=== PATIENT | female | born 1980 | race Caucasian/White ===

== ENCOUNTER → 2017-11-15 | Outpatient (CLI) | payer OTHER ==
--- NOTE | 2017-11-15 09:49 | US ---
EXAMINATION TYPE: US abdomen complete DATE OF EXAM: 11/15/2017 COMPARISON: NONE CLINICAL HISTORY: Epigastric pain R10.13. Nausea, epigastric pain EXAM MEASUREMENTS: Liver Length: 17.1 cm Gallbladder Wall: 0.2 cm CBD: 0.4 cm Spleen: 12.7 cm Right Kidney: 12.9 x 5.3 x 5.7 cm Left Kidney: 13.8 x 5.3 x 4.2 cm Technical limitations due to large amount of overlying bowel content Pancreas: limited evaluation due to overlying bowel content Liver: Enlarged Gallbladder: no evidence of stones Evidence for sonographic Vincent's sign: no CBD: appears wnl Spleen: appears wnl Right Kidney: Normal Left Kidney: enlarged Upper IVC: wnl Abd Aorta: visualized portions appear wnl, bifurcation obscured IMPRESSION: 1. Mild hepatomegaly. 2. There is some limitation due to bowel gas.
== END | disposition home or self-care (01) ==
LOC: RADUSWWP 07:43
PROVIDERS: ATTEND Family Medicine
DX: R16.0 Hepatomegaly, not elsewhere classified (principal); R10.13 Epigastric pain
CPT/HCPCS: 76700

== ENCOUNTER 2018-11-22 16:08 | Emergency (ER) | payer OTHER ==
[2018-11-22 16:40] VITALS: RESP 18
[2018-11-22] MEDS ORDERED: KETOROLAC 30 MG/ML 1 ML VIAL IVP STA (16:48)
[2018-11-22] MEDS ORDERED: SODIUM CHLORIDE 0.9% 1,000 ML IV STA (16:48)
--- NOTE | 2018-11-22 17:16 | ED ---
Abdominal Pain HPI - General Chief Complaint: Abdominal Pain Stated Complaint: poss kidney stones Time Seen by Provider: 11/22/18 16:48 Source: patient, RN notes reviewed Mode of arrival: ambulatory Limitations: no limitations - History of Present Illness Initial Comments: 38-year-old female presents emergency Department chief complaint of left flank pain. Patient states that this started earlier today. Patient does have a history kidney stone states the pain feels very similar. Patient reports no fever or chills. Patient has slight nausea which has resolved. Denies any diarrhea constipation. Denies any chance . Patient states that she is currently under her mental cycle. Patient states that nothing makes the pain feel better or worse at this time. - Related Data Previous Rx's Medication Instructions Recorded Cephalexin [Keflex] 500 mg PO Q8HR #21 cap 04/07/15 Hydrocodone/Acetaminophen [Prole 2 each PO Q6HR PRN #20 tab 04/07/15 5-325] Metoclopramide HCl [Reglan] 10 mg PO Q6HR PRN #15 tablet 04/07/15 Ibuprofen [Motrin] 600 mg PO Q8HR PRN #30 tab 11/22/18 Ondansetron Odt [Zofran Odt] 4 mg PO Q8HR PRN #10 tab 11/22/18 Allergies Allergy/AdvReac Type Severity Reaction Status Date / Time No Known Allergies Allergy Verified 11/22/18 16:40 Review of Systems ROS Statement: Those systems with pertinent positive or pertinent negative responses have been documented in the HPI. ROS Other: All systems not noted in ROS Statement are negative. Past Medical History Additional Past Medical History / Comment(s): kidney stones History of Any Multi-Drug Resistant Organisms: None Reported Past Surgical History: Section, Hernia Repair, Orthopedic Surgery Past Psychological History: No Psychological Hx Reported Smoking Status: Current every day smoker Past Alcohol Use History: Rare Past Drug Use History: None Reported General Exam Limitations: no limitations General appearance: alert, in no apparent distress Head exam: Present: atraumatic, normocephalic, normal inspection Neck exam: Present: normal inspection. Absent: tenderness, meningismus, lymphadenopathy Respiratory exam: Present: normal lung sounds bilaterally. Absent: respiratory distress, wheezes, rales, rhonchi, stridor Cardiovascular Exam: Present: regular rate, normal rhythm, normal heart sounds. Absent: systolic murmur, diastolic murmur, rubs, gallop, clicks GI/Abdominal exam: Present: soft, tenderness (Mild left-sided), normal bowel sounds. Absent: distended, guarding, rebound, rigid Back exam: Present: CVA tenderness (L). Absent: CVA tenderness (R) Neurological exam: Present: alert, oriented X3, CN II-XII intact Course Vital Signs 11/22/18 11/22/18 16:37 18:36 Temperature 99.2 F 98.9 F Pulse Rate 107 H 93 Respiratory 18 18 Rate Blood Pressure 129/83 128/81 O2 Sat by Pulse 97 98 Oximetry Medical Decision Making - Medical Decision Making 38-year-old female presented for flank pain. Patient has a history kidney stones symptoms and urinalysis indicative having a kidney stone patient is comfortable and will be discharged. - Lab Data Result diagrams: 11/22/18 17:17 11/22/18 17:17 Lab Results 11/22/18 11/22/18 11/22/18 Range/Units 17:17 17:17 17:20 WBC 10.0 (3.8-10.6) k/uL RBC 4.60 (3.80-5.40) m/uL Hgb 11.8 (11.4-16.0) gm/dL Hct 35.5 (34.0-46.0) % MCV 77.2 L (80.0-100.0) fL MCH 25.6 (25.0-35.0) pg MCHC 33.2 (31.0-37.0) g/dL RDW 14.9 (11.5-15.5) % Plt Count 281 (150-450) k/uL Neutrophils % 75 % Lymphocytes % 16 % Monocytes % 6 % Eosinophils % 2 % Basophils % 0 % Neutrophils # 7.5 (1.3-7.7) k/uL Lymphocytes # 1.6 (1.0-4.8) k/uL Monocytes # 0.6 (0-1.0) k/uL Eosinophils # 0.2 (0-0.7) k/uL Basophils # 0.0 (0-0.2) k/uL Sodium 142 (137-145) mmol/L Potassium 3.9 (3.5-5.1) mmol/L Chloride 112 H (98-107) mmol/L Carbon Dioxide 22 (22-30) mmol/L Anion Gap 8 mmol/L BUN 16 (7-17) mg/dL Creatinine 0.68 (0.52-1.04) mg/dL Est GFR (CKD-EPI)AfAm >90 (>60 ml/min/1.73 sqM) Est GFR (CKD-EPI)NonAf >90 (>60 ml/min/1.73 sqM) Glucose 95 (74-99) mg/dL Calcium 8.9 (8.4-10.2) mg/dL Total Bilirubin 0.2 (0.2-1.3) mg/dL AST 19 (14-36) U/L ALT 31 (9-52) U/L Alkaline Phosphatase 86 (38-126) U/L Total Protein 6.4 (6.3-8.2) g/dL Albumin 3.8 (3.5-5.0) g/dL Amylase 47 (30-110) U/L Lipase 110 (23-300) U/L Urine Color Yellow Urine Appearance Cloudy H (Clear) Urine pH 6.0 (5.0-8.0) Ur Specific [place] 1.031 (1.001-1.035) Urine Protein 1+ H (Negative) Urine Glucose (UA) Negative (Negative) Urine Ketones Trace H (Negative) Urine Blood Moderate H (Negative) Urine Nitrite Negative (Negative) Urine Bilirubin Negative (Negative) Urine Urobilinogen 2.0 (<2.0) mg/dL Ur Leukocyte Esterase Trace H (Negative) Urine RBC 83 H (0-5) /hpf Urine WBC 9 H (0-5) /hpf Ur Squamous Epith Cells 15 H (0-4) /hpf Urine Bacteria Occasional H (None) /hpf Urine Mucus Rare H (None) /hpf Urine HCG, Qual (Not Detectd) 11/22/18 Range/Units 17:20 WBC (3.8-10.6) k/uL RBC (3.80-5.40) m/uL Hgb (11.4-16.0) gm/dL Hct (34.0-46.0) % MCV (80.0-100.0) fL MCH (25.0-35.0) pg MCHC (31.0-37.0) g/dL RDW (11.5-15.5) % Plt Count (150-450) k/uL Neutrophils % % Lymphocytes % % Monocytes % % Eosinophils % % Basophils % % Neutrophils # (1.3-7.7) k/uL Lymphocytes # (1.0-4.8) k/uL Monocytes # (0-1.0) k/uL Eosinophils # (0-0.7) k/uL Basophils # (0-0.2) k/uL Sodium (137-145) mmol/L Potassium (3.5-5.1) mmol/L Chloride (98-107) mmol/L Carbon Dioxide (22-30) mmol/L Anion Gap mmol/L BUN (7-17) mg/dL Creatinine (0.52-1.04) mg/dL Est GFR (CKD-EPI)AfAm (>60 ml/min/1.73 sqM) Est GFR (CKD-EPI)NonAf (>60 ml/min/1.73 sqM) Glucose (74-99) mg/dL Calcium (8.4-10.2) mg/dL Total Bilirubin (0.2-1.3) mg/dL AST (14-36) U/L ALT (9-52) U/L Alkaline Phosphatase (38-126) U/L Total Protein (6.3-8.2) g/dL Albumin (3.5-5.0) g/dL Amylase (30-110) U/L Lipase (23-300) U/L Urine Color Urine Appearance (Clear) Urine pH (5.0-8.0) Ur Specific [place] (1.001-1.035) Urine Protein (Negative) Urine Glucose (UA) (Negative) Urine Ketones (Negative) Urine Blood (Negative) Urine Nitrite (Negative) Urine Bilirubin (Negative) Urine Urobilinogen (<2.0) mg/dL Ur Leukocyte Esterase (Negative) Urine RBC (0-5) /hpf Urine WBC (0-5) /hpf Ur Squamous Epith Cells (0-4) /hpf Urine Bacteria (None) /hpf Urine Mucus (None) /hpf Urine HCG, Qual Not Detected (Not Detectd) Disposition Clinical Impression: Kidney stone Disposition: HOME SELF-CARE Condition: Stable Instructions (If sedation given, give patient instructions): Kidney Stones (ED) Additional Instructions: Please return to the Emergency Department if symptoms worsen or any other concerns. Prescriptions: Ibuprofen [Motrin] 600 mg PO Q8HR PRN #30 tab PRN Reason: Pain Ondansetron Odt [Zofran Odt] 4 mg PO Q8HR PRN #10 tab PRN Reason: Nausea Is patient prescribed a controlled substance at d/c from ED?: No Referrals: Henrique Hardy MD [Primary Care Provider] - 1-2 days
[2018-11-22 17:28] LABS: Basophils % (A) 0 %; Eosinophils # (A) 0.2 k/uL (0-0.7); Eosinophils % (A) 2 %; HCT 35.5 % (34.0-46.0); HGB 11.8 gm/dL (11.4-16.0); Lymphocytes # (A) 1.6 k/uL (1.0-4.8); Lymphocytes % (A) 16 %; MCH 25.6 pg (25.0-35.0); MCHC 33.2 g/dL (31.0-37.0); MCV 77.2 fL (80.0-100.0); Monocytes # (A) 0.6 k/uL (0-1.0); Monocytes % (A) 6 %; Neutrophils # (A) 7.5 k/uL (1.3-7.7); Neutrophils % (A) 75 %; Platelet Count 281 k/uL (150-450); RDW 14.9 % (11.5-15.5)
[2018-11-22 17:38] LABS: ALT 31 U/L (9-52); AST 19 U/L (14-36); Albumin 3.8 g/dL (3.5-5.0); Alkaline Phosphatase 86 U/L (38-126); Amylase 47 U/L (30-110); Anion Gap 8 mmol/L; Blood Urea Nitrogen 16 mg/dL (7-17); Calcium 8.9 mg/dL (8.4-10.2); Carbon Dioxide 22 mmol/L (22-30); Chloride 112 mmol/L (98-107); Glucose 95 mg/dL (74-99); Lipase 110 U/L (23-300); Potassium 3.9 mmol/L (3.5-5.1); Sodium 142 mmol/L (137-145); Total Bilirubin 0.2 mg/dL (0.2-1.3); Total Protein 6.4 g/dL (6.3-8.2)
[2018-11-22 18:00] LABS: Appearance,Urine Cloudy (Clear); Bacteria,Urine Occasional /hpf; Bilirubin,Urine Negative (Negative); Blood,Urine Moderate (Negative); Color,Urine Yellow; Glucose,Urine (UA) Negative (Negative); Ketones,Urine Trace (Negative); Leukocyte Esterase,Urine Trace (Negative); Mucus,Urine Rare /hpf; Nitrite,Urine Negative (Negative); Protein,Urine 1+ (Negative); RBC,Urine 83 /hpf (0-5); Specific Gravity,Urine 1.031 (1.001-1.035); Squamous Epithelial Cell,Urine 15 /hpf (0-4); WBC,Urine 9 /hpf (0-5)
[2018-11-22 18:37] VITALS: BP 128/81; PULSE 93; TEMP 98.9
--- NOTE | 2018-11-22 18:40 | XR ---
Abdomen single view. History left flank pain. Comparison 07/10/2011. FINDINGS: 2 upright views were obtained. Bowel gas pattern is normal. There is no sign of intestinal obstructio n or pneumoperitoneum. Fecal pattern is normal. I see no pathologic calcifications over the kidneys. There is no evidence of a mass. IMPRESSION: Nonacute abdomen. No change.
[2018-11-22] MEDS ORDERED: ACET/COD 300 MG/30 MG STARTER PACK 6 TAB BTL PO STA (18:56)
== END 2018-11-22 19:05 | disposition home or self-care (01) ==
LOC: EC 16:08
DX: N20.0 Calculus of kidney (principal); F17.200 Nicotine dependence, unspecified, uncomplicated; Z87.442 Personal history of urinary calculi
CPT/HCPCS: 36415; 80053; 82150; 83690; 85025; 81001; 81025; 74018; 99284; 96374; 96361 ×2; J1885

== ENCOUNTER 2021-07-22 18:46 | Emergency (ER) | payer OTHER ==
[2021-07-22 19:04] VITALS: RESP 18; TEMP 99.3
[2021-07-22] MEDS ORDERED: SODIUM CHLORIDE 0.9% 1,000 ML IV STA (19:12)
[2021-07-22] MEDS ORDERED: HYDROmorphone 1 MG/ML 1 ML SYRINGE IVP STA (19:12)
[2021-07-22] MEDS ORDERED: ONDANSETRON 4 MG/2 ML VIAL IVP STA (19:12)
--- NOTE | 2021-07-22 19:17 | ED ---
General Adult HPI - General Chief complaint: Urogenital Stated complaint: Kidney stone Time Seen by Provider: 07/22/21 19:08 Source: patient Mode of arrival: ambulatory Limitations: no limitations - History of Present Illness Initial comments: Patient presents to the ED complaining of having right flank pain that radiates to her right groin region and nausea for the past 3.5 to 4 hours or so. Patient also states that she has felt like she has needed to urinate, but she has been urinating only small amounts each time she goes. Patient states that she has a history of renal stones, and she feels that she is passing a renal stone. Patient states that she took 3 ibuprofen tabs a couple of hours ago without much relief. Patient denies trauma or injury, fever or chills, headache, focal numbness/weakness/neuro deficit, chest pain, dyspnea, dizziness, vomiting, diarrhea or constipation, bloody or melanotic stool, dysuria, hematuria, vaginal bleeding, leg pain, or any other symptoms or complaints. - Related Data Home Medications Medication Instructions Recorded Confirmed Omeprazole 20 mg PO DAILY PRN 07/22/21 07/22/21 Allergies Allergy/AdvReac Type Severity Reaction Status Date / Time No Known Allergies Allergy Verified 07/22/21 20:48 Review of Systems ROS Statement: Those systems with pertinent positive or pertinent negative responses have been documented in the HPI. ROS Other: All systems not noted in ROS Statement are negative. Past Medical History Additional Past Medical History / Comment(s): kidney stones History of Any Multi-Drug Resistant Organisms: None Reported Past Surgical History: Section, Hernia Repair, Orthopedic Surgery Past Psychological History: No Psychological Hx Reported Smoking Status: Current every day smoker Past Alcohol Use History: Rare Past Drug Use History: None Reported General Exam Limitations: no limitations General appearance: alert, in no apparent distress Head exam: Present: atraumatic, normocephalic Eye exam: Present: normal appearance, EOMI ENT exam: Present: mucous membranes moist Neck exam: Present: other (Trachea is in midline) Respiratory exam: Present: normal lung sounds bilaterally. Absent: respiratory distress, wheezes, rales, rhonchi, stridor Cardiovascular Exam: Present: regular rate, normal rhythm, normal heart sounds, other (Normal radial pulses bilaterally) GI/Abdominal exam: Present: soft. Absent: tenderness, guarding Extremities exam: Present: full ROM. Absent: tenderness Back exam: Absent: tenderness, CVA tenderness (R), CVA tenderness (L) Neurological exam: Present: alert, oriented X3. Absent: motor sensory deficit Psychiatric exam: Present: normal affect, normal mood Skin exam: Present: warm, dry, intact, normal color Course Vital Signs 07/22/21 07/22/21 18:59 20:03 Temperature 99.3 F Pulse Rate 109 H 84 Respiratory 18 18 Rate Blood Pressure 152/69 141/79 O2 Sat by Pulse 97 99 Oximetry - Reevaluation(s) Reevaluation #1: 07/22/21 21:40 Patient states that her pain is much improved with ED treatment, and she denies development of any new pain or symptoms while in the ED. Patient is aware of her test results, and she feels comfortable going home at this time. Patient states that she will get a ride home from the ED tonight. Patient was instructed to, and agrees to, follow-up closely with her primary care provider, as well as urology. Patient was counseled about ureterolithiasis, and she was clearly explained return and follow-up instructions. Patient feels comfortable with this plan. Medical Decision Making - Medical Decision Making Patient's pain has improved with ED treatment. Patient is noted to have a 3 mm obstructing distal right ureteral stone, which I suspect is the etiology of her symptoms. Will discharge patient home with Tylenol #3 and Zofran starter packs. Patient was instructed to follow up closely with her primary care provider, as well as urology. Patient is afebrile, and her UA appears contaminated and not clearly suggestive of infection. - Lab Data Result diagrams: 07/22/21 20:07 07/22/21 19:46 Lab Results 07/22/21 07/22/21 07/22/21 Range/Units 19:46 20:07 20:07 WBC 15.0 H (3.8-10.6) k/uL RBC 4.97 (3.80-5.40) m/uL Hgb 14.1 (11.4-16.0) gm/dL Hct 42.4 (34.0-46.0) % MCV 85.3 (80.0-100.0) fL MCH 28.3 (25.0-35.0) pg MCHC 33.2 (31.0-37.0) g/dL RDW 14.1 (11.5-15.5) % Plt Count 259 (150-450) k/uL MPV 8.1 Neutrophils % 83 % Lymphocytes % 10 % Monocytes % 5 % Eosinophils % 1 % Basophils % 0 % Neutrophils # 12.4 H (1.3-7.7) k/uL Lymphocytes # 1.5 (1.0-4.8) k/uL Monocytes # 0.7 (0-1.0) k/uL Eosinophils # 0.2 (0-0.7) k/uL Basophils # 0.1 (0-0.2) k/uL Sodium 138 (137-145) mmol/L Potassium 4.2 (3.5-5.1) mmol/L Chloride 109 H (98-107) mmol/L Carbon Dioxide 21 L (22-30) mmol/L Anion Gap 8 mmol/L BUN 16 (7-17) mg/dL Creatinine 0.71 (0.52-1.04) mg/dL Est GFR (CKD-EPI)AfAm >90 (>60 ml/min/1.73 sqM) Est GFR (CKD-EPI)NonAf >90 (>60 ml/min/1.73 sqM) Glucose 128 H (74-99) mg/dL Calcium 9.4 (8.4-10.2) mg/dL Total Bilirubin 0.3 (0.2-1.3) mg/dL AST 23 (14-36) U/L ALT 22 (4-34) U/L Alkaline Phosphatase 102 (38-126) U/L Total Protein 6.7 (6.3-8.2) g/dL Albumin 3.9 (3.5-5.0) g/dL Lipase 110 (23-300) U/L HCG, Qual Not Detected Urine Color Yellow Urine Appearance Cloudy H (Clear) Urine pH 5.5 (5.0-8.0) Ur Specific [place] 1.030 (1.001-1.035) Urine Protein 1+ H (Negative) Urine Glucose (UA) Negative (Negative) Urine Ketones Trace H (Negative) Urine Blood Moderate H (Negative) Urine Nitrite Negative (Negative) Urine Bilirubin Negative (Negative) Urine Urobilinogen <2.0 (<2.0) mg/dL Ur Leukocyte Esterase Large H (Negative) Urine RBC 129 H (0-5) /hpf Urine WBC 3 (0-5) /hpf Ur Squamous Epith Cells 46 H (0-4) /hpf Urine Bacteria Rare H (None) /hpf Urine Mucus Few H (None) /hpf Urine Yeast (Budding) Occasional H (None) /hpf - Radiology Data Radiology results: report reviewed (Noncontrast CT abdomen/pelvis: Right-sided hydronephrosis and hydroureter with obstructing 3 mm calculus distal right ureter. Obstruction appears to be new compared to old exam. Normal appendix.) Disposition Clinical Impression: Ureterolithiasis Disposition: HOME SELF-CARE Condition: Stable Instructions (If sedation given, give patient instructions): Kidney Stones (ED) Additional Instructions: Return to the ER immediately should you develop new or worsening pain, a fever, persistent vomiting, feeling dizzy or faint, shortness of breath, or new or worsening symptoms. Follow up closely with your primary care provider, as well as urology. Is patient prescribed a controlled substance at d/c from ED?: No Referrals: Henrique Hardy MD [Primary Care Provider] - 1-2 days Chris Diop MD [STAFF PHYSICIAN] - 1-2 days Time of Disposition: 21:42
[2021-07-22 20:20] LABS: Basophils # (A) 0.1 k/uL (0-0.2); Basophils % (A) 0 %; Eosinophils # (A) 0.2 k/uL (0-0.7); Eosinophils % (A) 1 %; HCT 42.4 % (34.0-46.0); HGB 14.1 gm/dL (11.4-16.0); Lymphocytes # (A) 1.5 k/uL (1.0-4.8); Lymphocytes % (A) 10 %; MCH 28.3 pg (25.0-35.0); MCHC 33.2 g/dL (31.0-37.0); MCV 85.3 fL (80.0-100.0); Mean Platelet Volume 8.1; Monocytes # (A) 0.7 k/uL (0-1.0); Monocytes % (A) 5 %; Neutrophils # (A) 12.4 k/uL (1.3-7.7); Neutrophils % (A) 83 %; Platelet Count 259 k/uL (150-450); RBC 4.97 m/uL (3.80-5.40); RDW 14.1 % (11.5-15.5)
[2021-07-22 20:28] LABS: Appearance,Urine Cloudy (Clear); Bacteria,Urine Rare /hpf; Bilirubin,Urine Negative (Negative); Blood,Urine Moderate (Negative); Budding Yeast,Urine Occasional /hpf; Color,Urine Yellow; Glucose,Urine (UA) Negative (Negative); Ketones,Urine Trace (Negative); Leukocyte Esterase,Urine Large (Negative); Mucus,Urine Few /hpf; Nitrite,Urine Negative (Negative); PH, Urine 5.5 (5.0-8.0); Protein,Urine 1+ (Negative); RBC,Urine 129 /hpf (0-5); Squamous Epithelial Cell,Urine 46 /hpf (0-4); Urobilinogen,Urine <2.0 mg/dL (<2.0); WBC,Urine 3 /hpf (0-5)
[2021-07-22 20:30] LABS: HCG,Qualitative Serum Not Detected
[2021-07-22 20:32] LABS: ALT 22 U/L (4-34); AST 23 U/L (14-36); African American GFR (CKD) >90 (>60 ml/min/1.73 sqM); Albumin 3.9 g/dL (3.5-5.0); Alkaline Phosphatase 102 U/L (38-126); Anion Gap 8 mmol/L; Blood Urea Nitrogen 16 mg/dL (7-17); Calcium 9.4 mg/dL (8.4-10.2); Carbon Dioxide 21 mmol/L (22-30); Chloride 109 mmol/L (98-107); Glucose 128 mg/dL (74-99); Lipase 110 U/L (23-300); Non-African American GFR(CKD) >90 (>60 ml/min/1.73 sqM); Potassium 4.2 mmol/L (3.5-5.1); Sodium 138 mmol/L (137-145); Total Bilirubin 0.3 mg/dL (0.2-1.3); Total Protein 6.7 g/dL (6.3-8.2)
--- NOTE | 2021-07-22 21:35 | CT ---
EXAMINATION TYPE: CT abdomen pelvis wo con DATE OF EXAM: 07/22/2021 COMPARISON: 04/07/2015 HISTORY: RT flank pain, hx renal stones CT DLP: 1458.4 mGycm Automated exposure control for dose reduction was used. Images obtained from the diaphragm to the floor the pelvis without contrast. Lung bases are clear. There is no pleural effusion. Heart size is normal. Liver spleen stomach pancreas gallbladder appear normal. Bile ducts are nondilated. There is no adrenal mass. Kidneys have normal size. There are bilateral renal calculi up to 3 mm. The re is right-sided hydronephrosis and hydroureter. There appears to be 3 mm calculus lower right urete r. The bladder distends smoothly. There is no inguinal hernia. There is no free fluid in the pelvis. Uterus is anteverted. There is no evidence of a pelvic mass. There is L5 spondylolysis with first-degree L5-S1 spondylolisthesis. Bony pelvis is intact. Hip joint s are intact. There is no mesenteric edema. There is no ascites or free air. There is no bowel obstruction. Appendi x is medial and appears normal. IMPRESSION: Right-sided hydronephrosis and hydroureter with obstructing calculus distal right ureter. Obstruction appears new compared to old exam. Normal appendix. 3 mm calculus anterior right kidney. There are 2 small calculi also in the lower pole left kidney.
[2021-07-22] MEDS ORDERED: ONDANSETRON 4 MG ODT STARTER PACK 2 TAB BTL PO STA (21:39)
[2021-07-22] MEDS ORDERED: ACET/COD 300 MG/30 MG STARTER PACK 6 TAB BTL PO STA (21:39)
[2021-07-22 22:16] VITALS: BP 136/64; PULSE 74
== END 2021-07-22 22:16 | disposition home or self-care (01) ==
LOC: EC 18:46
DX: N13.2 Hydronephrosis with renal and ureteral calculous obstruction (principal); F17.200 Nicotine dependence, unspecified, uncomplicated
CPT/HCPCS: 36415; 80053; 83690; 85025; 81001; 84703; 74176; 99284; 96374; 96375; 96361 ×3; J2405; J1170; S0119

== ENCOUNTER → 2021-08-22 | Outpatient (CLI) | payer OTHER ==
--- NOTE | 2021-08-22 22:25 | US ---
EXAMINATION TYPE: US kidneys/renal and bladder DATE OF EXAM: 08/22/2021 COMPARISON: CT abdomen pelvis 07/22/2021 CLINICAL HISTORY: N20.0 Calculus of kidney left and right, N20.1 Calculus of u. History of kidney sto nikolas EXAM MEASUREMENTS: Right Kidney: 13.2 x 5.8 x 4.9 cm Left Kidney: 13.2 x 4.9 x 4.7 cm *technical limitations due to patient's body habitus and overlying bowel content Right Kidney: no evidence of hydronephrosis Left Kidney: no evidence of hydronephrosis Bladder: appears wnl Bilateral Jets seen: yes There is no hydronephrosis. No nephrolithiasis is seen. No masses are identified. There is normal cortical thickness and echogenicity of the bilateral kidneys. The urinary bladder is unremarkable. B ilateral ureteral jets are seen. IMPRESSION: 1. Normal appearance of the bilateral kidneys. The bilateral renal calculi seen on CT neema rison are not appreciated on current ultrasound. 2. Normal urinary bladder.
--- NOTE | 2021-08-23 13:51 | XR ---
EXAMINATION TYPE: XR KUB DATE OF EXAM: 08/23/2021 1:11 PM CLINICAL HISTORY: Bilateral stones. TECHNIQUE: Two supine KUB images of the abdomen are obtained. COMPARISON: CT abdomen and pelvis July 22, 2021. FINDINGS: Stable 3 mm calculus lower pole level left kidney at inferior L3 vertebral body level. The 2 to 3 mm calculus right kidney upper to midpole level on CT coronal image 63 is less well seen on pl ain films. Single left-sided pelvic phlebolith. A 2 mm distal right ureter calculus on CT coronal romie ge 81 not clearly seen on plain films. Overall nonobstructive bowel gas pattern. Pars defect bilaterally at L5 level are redemonstrated. IMPRESSION: As above.
== END | disposition home or self-care (01) ==
LOC: RADUSWWP 16:24
PROVIDERS: ATTEND Urology
DX: N20.0 Calculus of kidney (principal)
CPT/HCPCS: 74018; 76770

== ENCOUNTER → 2021-10-09 | Outpatient (CLI) | payer OTHER ==
--- NOTE | 2021-10-09 11:39 | MM ---
Reason for exam: screening (asymptomatic). Last mammogram was performed 4 years and 3 months ago. History: Family history of breast cancer in aunt at age 55. Took hormonal contraceptives for 2 years. Physical Findings: A clinical breast exam by your physician is recommended on an annual basis and results should be correlated with mammographic findings. MG 3D Screening Mammo W/Cad Bilateral CC and MLO view(s) were taken. Prior study comparison: July 17, 2017, bilateral MG 3d screening mammo w/cad. There are scattered fibroglandular densities. There is no discrete abnormality. ASSESSMENT: Negative, BI-RAD 1 RECOMMENDATION: Routine screening mammogram of both breasts in 1 year.
== END | disposition home or self-care (01) ==
LOC: RADMAMWWP 08:25
PROVIDERS: ATTEND Obstetrics & Gynecology
DX: Z12.31 Encounter for screening mammogram for malignant neoplasm of breast (principal); Z80.3 Family history of malignant neoplasm of breast
CPT/HCPCS: 77063; 77067

== ENCOUNTER → 2023-02-22 | Outpatient (CLI) | payer OTHER ==
--- NOTE | 2023-02-25 07:58 | MM ---
Reason for Exam: Screening (asymptomatic). Last mammogram was performed 1 year(s) and 4 month(s) ago. Patient History: Menarche at age 9. First Full-Term at age 25. Premenopausal. Patient used Hormonal Contraceptives for 2 years. Risk Values: Ellen 5 year model risk: 0.6%. NCI Lifetime model risk: 9.7%. Prior Study Comparison: 07/17/2017 Bilateral Screening Mammogram, [facility]. 10/09/2021 Bilateral Screening Mammogram, [facility]. Tissue Density: The breast tissue is heterogeneously dense. This may lower the sensitivity of mammography. Findings: Analyzed By CAD. There is no suspicious group of microcalcifications or new suspicious mass in either breast. Overall Assessment: Negative, BI-RAD 1 Management: Screening Mammogram of both breasts in 1 year. . Patient should continue monthly self-breast exams. A clinical breast exam by your physician is recommended on an annual basis. This exam should not preclude additional follow-up of suspicious palpable abnormalities. Note on Ellen scores and lifetime risk: 1. A Ellen score greater than 3% is considered moderate risk. If this is the case, consider specialist referral to assess eligibility for a risk reducing agent. 2. If overall lifetime risk for the development of breast cancer is 20% or higher, the patient may qualify for future screening with alternating mammogram and breast MRI. Electronically signed and approved by: Jered Lovett M.D. Radiologis
== END | disposition home or self-care (01) ==
LOC: RADMAMWWP 07:37
PROVIDERS: ATTEND Obstetrics & Gynecology
DX: Z12.31 Encounter for screening mammogram for malignant neoplasm of breast (principal)
CPT/HCPCS: 77063; 77067

== ENCOUNTER → 2024-02-06 | Outpatient (CLI) | payer OTHER ==
--- NOTE | 2024-02-06 12:21 | CA ---
Stress Echo Report Mrati Chew Age: 44 Gender: F : 1980 Exam Date: 02/06/2024 10:21 Exam Location: [facility] Ht (in): 59 Wt (lb): 230 Ordering Physician: Henrique Hardy MD Referring Physician: Deb Bedoya Babbitter: Sunni Hernandez RDCS Technologist Procedure CPT: Indication: I10 ESSENTIAL HTN ICD-9 Codes: Rhythm: Patient History: Cardiac Medications: WELLBUTRIN, AMLODIPINE Medications in past 24 hours: Contrast: N/A Stress Results Protocol: Harrison Total dose(mL): NA Exercise Duration (min:sec): 6:[address] Depression (mm): Angina Score: Espinosa Score: METS: 7.1 Resting HR: 127 Resting BP: 139 / 64 Peak HR: 165 Peak BP: 187 / 67 Max Predicted HR: 177 93 % Max Predicted HR Target HR: 150 Double Product: [id number] Stress Summary: BP Response: Reason for Termination: Reached target heart rate or work-load Cardiac Symptoms: NO SYMPTOMS ECG Analysis Resting ECG: Stress ECG: Arrhythmia: Echo Analysis Resting Echo: Peak Echo Analysis: MEASUREMENTS (Male/Female) Normal Values CONCLUSIONS Good exercise tolerance Normal electrocardiogram and echocardiogram in response to exercise Dr. Avtar Hodge MD (Electronically Signed) Final Date: 06 Feb 2024 12:21
--- NOTE | 2024-02-06 12:30 | CA ---
Transthoracic Echo Report Name: Marti Chew Age: 44 Gender: F : 1980 Exam Date: 02/06/2024 10:37 Exam Location: [place] [facility] Ht (in): 59 Wt (lb): 230 Ordering Physician: Henrique Hardy MD Attending/Referring Phys: Deb Bedoya [facility] Embedded Hardware Engineer Elvia Roldan RDCS Procedure CPT: Indications: I10 ESSENTIAL HTN Cardiac Hx: Technical Quality: Fair Contrast 1: Total Dose (mL): Contrast 2: Total Dose (mL): MEASUREMENTS (Male / Female) Normal Values 2D ECHO LV Diastolic Diameter PLAX 4.0 cm 4.2 - 5.9 / 3.9 - 5.3 cm LV Systolic Diameter PLAX 2.2 cm IVS Diastolic Thickness 1.2 cm 0.6 - 1.0 / 0.6 - 0.9 cm LVPW Diastolic Thickness 1.1 cm 0.6 - 1.0 / 0.6 - 0.9 cm LV Relative Wall Thickness 0.6 RV Internal Dim ED PLAX 3.7 cm LA Volume 67.0 cm??? 18 - 58 / 22 - 52 cm??? LA Volume Index 31.1 cm???/m??? 16 - 28 cm???/m??? M-MODE Aortic Root Diameter MM 2.9 cm LA Systolic Diameter MM 5.0 cm LA Ao Ratio MM 1.8 AV Cusp Separation MM 2.0 cm DOPPLER AV Peak Velocity 144.3 cm/s AV Peak Gradient 8.3 mmHg AV Mean Velocity 98.4 cm/s AV Mean Gradient 4.5 mmHg AV Velocity Time Integral 23.2 cm LVOT Peak Velocity 117.8 cm/s LVOT Peak Gradient 5.5 mmHg LVOT Velocity Time Integral 23.0 cm MV Area PHT 7.9 cm??? Mitral E Point Velocity 70.9 cm/s Mitral A Point Velocity 117.2 cm/s Mitral E to A Ratio 0.6 MV Deceleration Time 96.1 ms MV E' Velocity 5.0 cm/s Mitral E to MV E' Ratio 14.0 TR Peak Velocity 227.8 cm/s TR Peak Gradient 20.8 mmHg Right Ventricular Systolic Press 25.8 mmHg FINDINGS Left Ventricle Mildly increased left ventricular wall thickness. Left ventricular cavity size normal. Normal left ventricular systolic function with no obvious regional wall motion abnormalities. Grade 1 diastolic dysfunction. Right Ventricle Mild right ventricular dilatation. Right ventricular systolic pressure within normal limits. Right Atrium Normal right atrial size. Left Atrium Mildly increased left atrial volume. Mildly increased left atrial area. Mitral Valve Structurally normal mitral valve. No mitral stenosis, regurgitation or prolapse. Aortic Valve Trileaflet aortic valve. No aortic valve stenosis or regurgitation. Tricuspid Valve Structurally normal tricuspid valve. Mild tricuspid regurgitation. Pulmonic Valve Structurally normal pulmonic valve. Pericardium No pericardial effusion. Aorta Normal size aortic root and proximal ascending aorta. CONCLUSIONS Normal LV systolic function Mildly enlarged right ventricle with normal function Normal pulmonary artery systolic pressure Trileaflet aortic valve with no stenosis or regurgitation Normal mitral valve leaflets No pericardial effusion Normal aortic root and proximal ascending aorta Previewed by: Dr. Avtar Hodge MD (Electronically Signed) Final Date: 06 Feb 2024 12:29
== END | disposition home or self-care (01) ==
LOC: RADNMMAIN 09:45
PROVIDERS: ATTEND Family Medicine
DX: I11.9 Hypertensive heart disease without heart failure (principal)
CPT/HCPCS: 93306; 93351

== ENCOUNTER 2024-03-26 21:16 | Emergency (ER) | payer OTHER ==
--- NOTE | 2024-03-26 22:05 | ED ---
General Adult HPI - General Chief complaint: Extremity Problem,Nontraumatic Stated complaint: Leg pain Time Seen by Provider: 03/26/24 21:36 Source: patient Mode of arrival: ambulatory Limitations: no limitations - History of Present Illness Initial comments: Dictation was produced using Right [employer] dictation software. please excuse any grammatical, word or spelling errors. Chief Complaint: 44-year-old female presents to the emergency department 2 days of cold right lower extremity History of Present Illness: Patient is a 44-year-old female presents to the emergency department for 2 days of cold right lower extremity. Patient denies any significant medical history. She has a history of hypertension. Patient states that she woke up yesterday felt like her leg seemed cold. States that it is her whole leg. She went on [employer] and thought that maybe she was having a serious life-threatening issue. No other complaints. The ROS documented in this emergency department record has been reviewed and confirmed by me. Those systems with pertinent positive or negative responses have been documented in the HPI. All other systems are other negative and/or noncontributory. - Related Data Home Medications Medication Instructions Recorded Confirmed Omeprazole 20 mg PO DAILY PRN 07/22/21 07/22/21 Allergies Allergy/AdvReac Type Severity Reaction Status Date / Time No Known Allergies Allergy Verified 03/26/24 21:27 Review of Systems ROS Statement: Those systems with pertinent positive or pertinent negative responses have been documented in the HPI. ROS Other: All systems not noted in ROS Statement are negative. Past Medical History Past Medical History: Hypertension Additional Past Medical History / Comment(s): kidney stones History of Any Multi-Drug Resistant Organisms: None Reported Past Surgical History: Section, Hernia Repair, Orthopedic Surgery Past Psychological History: No Psychological Hx Reported Smoking Status: Current every day smoker Past Alcohol Use History: Rare Past Drug Use History: None Reported General Exam - General Exam Comments Initial Comments: PHYSICAL EXAM: General Impression: Alert and oriented x3, not in acute distress HEENT: Normocephalic atraumatic, extra-ocular movements intact, pupils equal and reactive to light bilaterally, mucous membranes moist. Cardiovascular: Heart regular rate and rhythm Chest: Able to complete full sentences, no retractions, no tachypnea Abdomen: abdomen soft, non-tender, non-distended, no organomegaly Musculoskeletal: Pulses present and equal in all extremities, no peripheral edema Motor: no focal deficits noted Neurological: CN II-XII grossly intact, no focal motor or sensory deficits noted, no gait ataxia Skin: Intact with no visualized rashes Psych: Normal affect and mood Limitations: no limitations Course Vital Signs 03/26/24 21:25 Temperature 98.6 F Pulse Rate 122 H Respiratory 20 Rate Blood Pressure 144/73 O2 Sat by Pulse 96 Oximetry Medical Decision Making - Medical Decision Making Was pt. sent in by a medical professional or institution (ASHUTOSH Daniel, [employer], urgent care, hospital, or assisted...) When possible be specific @ -No Did you speak to anyone other than the patient for history (EMS, parent, family, police, friend...)? What history was obtained from this source @ -No Did you review nursing and triage notes (agree or disagree)? Why? @ -I reviewed and agree with nursing and triage notes Were old charts reviewed (outside hosp., previous admission, EMS record, old EKG, old radiological studies, urgent care reports/EKG's, assisted records)? Report findings @ -No old charts were reviewed Differential Diagnosis (chest pain, altered mental status, abdominal pain women, abdominal pain men, vaginal bleeding, musculoskeletal, weakness, fever, dyspnea, syncope, headache, dizziness, GI bleed, back pain, seizure, CVA, palpatations, mental health)? @ -Blood clot, DVT, arterial thrombosis, peripheral arterial disease EKG interpreted by me (3pts min.). @ -None done X-rays interpreted by me (1pt min.). @ -None done CT interpreted by me (1pt min.). @ -None done U/S interpreted by me (1pt. min.). @ -None done What testing was considered but not performed or refused? (CT, X-rays, U/S, labs)? Why? @ -None What meds were considered but not given or refused? Why? @ -None Did you discuss the management of the patient with other professionals (professionals i.e. ASHUTOSH Daniel, [employer], lab, RT, psych nurse, social work specialist, yarn salvager, teacher, bank compliance officer, case sealer)? Give summary @ -No Was smoking cessation discussed for >3mins.? @ -No Was critical care preformed (if so, how long)? @ -No Were there social determinants of health that impacted care today? How? (Homelessness, low income, unemployed, alcoholism, drug addiction, jones sportation, low edu. Level, literacy, decrease access to med. care, half-way, rehab)? @ -No Was there de-escalation of care discussed even if they declined (Discuss DNR or withdrawal of care, Hospice)? DNR status @ -No What co-morbidities impacted this encounter? (DM, HTN, Smoking, COPD, CAD, Cancer, CVA, ARF, Chemo, Hep., AIDS, mental health diagnosis, sleep apnea, morbid obesity)? @ -None Was patient admitted / discharged? Hospital course, mention meds given and route, prescriptions, significant lab abnormalities, going to OR and other pertinent info. @ -44-year-old female presents to the ER for chief complaint of cold leg. Vital signs stable. Patient has good pulses to the bilateral lower extremity that are equal. She does not have any calf pain. Temperature of the legs are identical. No concern for ischemic limb. Laboratory evaluation obtained showing no acute processes. Patient discharged advised to follow-up with primary care doctor. Undiagnosed new problem with uncertain prognosis? @ -No Drug Therapy requiring intensive monitoring for toxicity (Heparin, Nitro, Insulin, Cardizem)? @ -No Were any procedures done? @ -No Diagnosis/symptom? Acute, or Chronic, or Acute on Chronic? Uncomplicated (without systemic symptoms) or Complicated (systemic symptoms)? @ -Neuropathy Side effects of treatment? @ -No Exacerbation, Progression, or Severe Exacerbation? @ -No Poses a threat to life or bodily function? How? (Chest pain, USA, MT, pneumonia, PE, COPD, DKA, ARF, appy, cholecystitis, CVA, Diverticulitis, Homicidal, Suicidal, threat to staff... and all critical care pts) @ -No - Lab Data Result diagrams: 03/26/24 22:29 Lab Results 03/26/24 Range/Units 22:29 Sodium 141 (137-145) mmol/L Potassium 3.9 (3.5-5.1) mmol/L Chloride 111 H (98-107) mmol/L Carbon Dioxide 23 (22-30) mmol/L Anion Gap 7 mmol/L BUN 13 (7-17) mg/dL Creatinine 0.52 (0.52-1.04) mg/dL Est GFR (CKD-EPI)AfAm >90 (>60 ml/min/1.73 sqM) Est GFR (CKD-EPI)NonAf >90 (>60 ml/min/1.73 sqM) Glucose 111 H (74-99) mg/dL Calcium 8.9 (8.4-10.2) mg/dL Magnesium 1.8 (1.6-2.3) mg/dL Disposition Clinical Impression: Neuropathy Disposition: HOME SELF-CARE Condition: Good Instructions (If sedation given, give patient instructions): Peripheral Neuropathy (ED) Additional Instructions: Please seek medical attention if you have any worsening symptoms especially if it is associated with other symptoms for example confusion, upper extremities symptoms or speech difficulties Is patient prescribed a controlled substance at d/c from ED?: No Referrals: Henrique Hardy MD [Primary Care Provider] - 1-2 days Time of Disposition: 23:16
[2024-03-26 22:54] LABS: African American GFR (CKD) >90 (>60 ml/min/1.73 sqM); Anion Gap 7 mmol/L; Blood Urea Nitrogen 13 mg/dL (7-17); Calcium 8.9 mg/dL (8.4-10.2); Carbon Dioxide 23 mmol/L (22-30); Chloride 111 mmol/L (98-107); Glucose 111 mg/dL (74-99); Magnesium 1.8 mg/dL (1.6-2.3); Non-African American GFR(CKD) >90 (>60 ml/min/1.73 sqM); Potassium 3.9 mmol/L (3.5-5.1); Sodium 141 mmol/L (137-145)
[2024-03-26 23:28] VITALS: BP 133/86; PULSE 118; RESP 18; TEMP 98.9
== END 2024-03-26 23:29 | disposition home or self-care (01) ==
LOC: EC 21:16
DX: G62.9 Polyneuropathy, unspecified (principal); F17.200 Nicotine dependence, unspecified, uncomplicated
CPT/HCPCS: 36415; 80048; 83735; 99283

== ENCOUNTER → 2024-06-22 | Outpatient (CLI) | payer OTHER ==
--- NOTE | 2024-06-22 08:39 | MM ---
Reason for Exam: Screening (asymptomatic). Last mammogram was performed 1 year(s) and 4 month(s) ago. Patient History: Menarche at age 9. First Full-Term at age 25. Premenopausal. Patient used Hormonal Contraceptives for 2 years. Last menstrual period: 06/12/2024 Risk Values: Ellen 5 year model risk: 0.7%. NCI Lifetime model risk: 9.6%. Prior Study Comparison: 07/17/2017 Bilateral Screening Mammogram, [facility]. 10/09/2021 Bilateral Screening Mammogram, [facility]. 02/22/2023 Bilateral MG 3D screening mammo w/cad, [facility]. Tissue Density: There are scattered areas of fibroglandular density. Findings: Analyzed By CAD. Right breast: There is no suspicious group of microcalcifications or new suspicious mass. Left breast: There is no suspicious group of microcalcifications or new suspicious mass. Overall Assessment: Negative, BI-RAD 1 Management: Screening Mammogram of both breasts in [address] [facility] will attempt to contact patient to return for supplemental views and ultrasound if indicated. Patient should continue monthly self-breast exams. A clinical breast exam by your physician is recommended on an annual basis. This exam should not preclude additional follow-up of suspicious palpable abnormalities. Note on Ellen scores and lifetime risk: 1. A Ellen score greater than 3% is considered moderate risk. If this is the case, consider specialist referral to assess eligibility for a risk reducing agent. 2. If overall lifetime risk for the development of breast cancer is 20% or higher, the patient may qualify for future screening with alternating mammogram and breast MRI. [facility], , 06/22/2024 8:36 AM. Electronically signed and approved by: Harrison Virk DO
== END | disposition home or self-care (01) ==
LOC: RADMAMWWP 07:33
PROVIDERS: ATTEND Obstetrics & Gynecology Obstetrics
DX: Z12.31 Encounter for screening mammogram for malignant neoplasm of breast
CPT/HCPCS: 77063; 77067

== ENCOUNTER 2024-10-02 09:28 | Inpatient (IN) | payer OTHER ==
--- NOTE | 2024-10-02 10:26 | ED ---
Dizziness HPI - General Chief Complaint: Dizziness Stated Complaint: dizzy, ams, vision issues Time Seen by Provider: 10/02/24 10:24 Source: patient, RN notes reviewed Mode of arrival: wheelchair Limitations: no limitations - History of Present Illness Initial Comments: 44-year-old female with history of hypertension presenting for dizziness x 1 day. States she woke up yesterday morning with dizziness worse with sitting up/movement and better when she is lying down. Reports several episodes of nausea/vomiting due to the dizziness. Also reports difficulty focusing her eyes to the point where she is having difficulty ambulating. Denies chest pain, shortness of breath, fever, urinary symptoms, abdominal pain. She has never had this before. States the night before symptom onset, patient used a neck massager for a pinched nerve in her left neck. She is a current smoker. She does reports that she has been sick with flulike symptoms for the past week however reports cough has been improving. Denies history of cardiac or pulmonary issues. - Related Data Home Medications Medication Instructions Recorded Confirmed Omeprazole 20 mg PO DAILY PRN 07/22/21 07/22/21 Allergies Allergy/AdvReac Type Severity Reaction Status Date / Time No Known Allergies Allergy Verified 10/02/24 09:31 Review of Systems ROS Statement: Those systems with pertinent positive or pertinent negative responses have been documented in the HPI. ROS Other: All systems not noted in ROS Statement are negative. Past Medical History Past Medical History: Hypertension Additional Past Medical History / Comment(s): kidney stones History of Any Multi-Drug Resistant Organisms: None Reported Past Surgical History: Section, Hernia Repair, Orthopedic Surgery Past Psychological History: No Psychological Hx Reported Smoking Status: Current every day smoker Past Alcohol Use History: Rare Past Drug Use History: None Reported General Exam Limitations: no limitations General appearance: alert, in no apparent distress, other (Tearful on exam) Head exam: Present: atraumatic, normocephalic, normal inspection Eye exam: Present: normal appearance, PERRL, EOMI. Absent: scleral icterus, conjunctival injection, periorbital swelling ENT exam: Present: normal exam, mucous membranes moist, TM's normal bilaterally Neck exam: Present: normal inspection. Absent: tenderness, meningismus, lymphadenopathy Respiratory exam: Present: normal lung sounds bilaterally. Absent: respiratory distress, wheezes, rales, rhonchi, stridor Cardiovascular Exam: Present: regular rate, normal rhythm, normal heart sounds. Absent: systolic murmur, diastolic murmur, rubs, gallop, clicks GI/Abdominal exam: Present: soft, normal bowel sounds. Absent: distended, tenderness, guarding, rebound, rigid Neurological exam: Present: alert, oriented X3, CN II-XII intact Psychiatric exam: Present: normal affect, normal mood Skin exam: Present: warm, dry, intact, normal color. Absent: rash Course Vital Signs 10/02/24 10/02/24 09:32 09:58 Temperature 98.6 F 99.6 F Pulse Rate 104 H Respiratory 20 Rate Blood Pressure 142/80 O2 Sat by Pulse 96 Oximetry EKG Findings - EKG Results: EKG: interpreted by OVIDIO (EKG reveals normal sinus rhythm with no ST changes. Ventricular rate 94 bpm, NC interval 136, QRS duration 104, QT/QTc 336/387) Medical Decision Making - Medical Decision Making Was pt. sent in by a medical professional or institution (, PA, [employer], urgent care, hospital, or senior living...) When possible be specific @ -No Did you speak to anyone other than the patient for history (EMS, parent, family, police, friend...)? What history was obtained from this source @ -No Did you review nursing and triage notes (agree or disagree)? Why? @ -I reviewed and agree with nursing and triage notes Were old charts reviewed (outside hosp., previous admission, EMS record, old EKG, old radiological studies, urgent care reports/EKG's, senior living records)? Report findings @ -No old charts were reviewed Differential Diagnosis (chest pain, altered mental status, abdominal pain women, abdominal pain men, vaginal bleeding, weakness, fever, dyspnea, syncope, headache, dizziness, GI bleed, back pain, seizure, CVA, palpatations, mental health, musculoskeletal)? @ -Differential Dizziness: Benign paroxysmal positional Vertigo, Meniere's disease, otitis media, acoustic neuroma, vertebrobasilar insufficiency, cerebellar stroke, encephalitis, hypovolemic, arrhythmia, coronary artery syndrome, anemia, this is not meant to be an all-inclusive list EKG interpreted by me (3pts min.). @ -As above X-rays interpreted by me (1pt min.). @ -Chest x-ray reveals no acute process CT interpreted by me (1pt min.). @ -CT brain reveals small acute ischemic infarct posterior right frontal lobe, no acute bleed or mass effect U/S interpreted by me (1pt. min.). @ -None done What testing was considered but not performed or refused? (CT, X-rays, U/S, labs)? Why? @ -None What meds were considered but not given or refused? Why? @ -None Did you discuss the management of the patient with other professionals (professionals i.e. , PA, [employer], lab, RT, psych nurse, social work supervisor, band teacher, teacher, deputy probation officer, rifle case repairer)? Give summary @ -I spoke with radiologist regarding CT results. I then spoke with Dr. Oliver from [facility] who accepts admission Was smoking cessation discussed for >3mins.? @ -No Was critical care preformed (if so, how long)? @ -No Were there social determinants of health that impacted care today? How? (Homelessness, low income, unemployed, alcoholism, drug addiction, transportation, low edu. Level, literacy, decrease access to med. care, fpc, rehab)? @ -No Was there de-escalation of care discussed even if they declined (Discuss DNR or withdrawal of care, Hospice)? DNR status @ -No What co-morbidities impacted this encounter? (DM, HTN, Smoking, COPD, CAD, Cancer, CVA, ARF, Chemo, Hep., AIDS, mental health diagnosis, sleep apnea, morbid obesity)? @ -None Was patient admitted / discharged? Hospital course, mention meds given and route, prescriptions, significant lab abnormalities, going to OR and other pertinent info. @ -Admitted. 44-year-old female with history of hypertension presenting for dizziness x 1 day with vision changes. Patient was given IV fluids, Zofran, and meclizine. I was called by radiologist regarding CT brain results which revealed small acute ischemic infarct posterior right frontal lobe with no acute bleed or mass effect. Lab work remarkable for mild leukocytosis of 12, otherwise unremarkable. Patient educated on results. As symptoms have been gr eater than 24 hours, we will admit for MRI brain and neuroconsult. I spoke with Dr. Oliver from [facility] who accepts admission. Case was discussed with my ED attending Dr. Castro. Undiagnosed new problem with uncertain prognosis? @ -No Drug Therapy requiring intensive monitoring for toxicity (Heparin, Nitro, Insulin, Cardizem)? @ -No Were any procedures done? @ -No Diagnosis/symptom? @ -Frontal lobe infarct Acute, or Chronic, or Acute on Chronic? @ -Acute Uncomplicated (without systemic symptoms) or Complicated (systemic symptoms)? @ -Complicated Side effects of treatment? @ -No Exacerbation, Progression, or Severe Exacerbation? @ -No Poses a threat to life or bodily function? How? (Chest pain, USA, PA, pneumonia, PE, COPD, DKA, ARF, appy, cholecystitis, CVA, Diverticulitis, Homicidal, Suicidal, threat to staff... and all critical care pts) @ -Yes - Lab Data Result diagrams: 10/02/24 10:00 10/02/24 10:00 Lab Results 10/02/24 10/02/24 10/02/24 Range/Units 10:00 10:00 10:00 WBC 12.5 H (3.8-10.6) k/uL RBC 5.23 (3.80-5.40) m/uL Hgb 15.5 (11.4-16.0) gm/dL Hct 46.2 H (34.0-46.0) % MCV 88.4 (80.0-100.0) fL MCH 29.8 (25.0-35.0) pg MCHC 33.7 (31.0-37.0) g/dL RDW 13.4 (11.5-15.5) % Plt Count 284 (150-450) k/uL MPV 7.6 Neutrophils % 84 % Lymphocytes % 10 % Monocytes % 5 % Eosinophils % 1 % Basophils % 0 % Neutrophils # 10.5 H (1.3-7.7) k/uL Lymphocytes # 1.2 (1.0-4.8) k/uL Monocytes # 0.6 (0-1.0) k/uL Eosinophils # 0.1 (0-0.7) k/uL Basophils # 0.0 (0-0.2) k/uL Sodium 140 (137-145) mmol/L Potassium 4.0 (3.5-5.1) mmol/L Chloride 112 H (98-107) mmol/L Carbon Dioxide 19 L (22-30) mmol/L Anion Gap 9 mmol/L BUN 11 (7-17) mg/dL Creatinine 0.52 (0.52-1.04) mg/dL Est GFR (CKD-EPI)AfAm >90 (>60 ml/min/1.73 sqM) Est GFR (CKD-EPI)NonAf >90 (>60 ml/min/1.73 sqM) Glucose 126 H (74-99) mg/dL Calcium 9.2 (8.4-10.2) mg/dL Total Bilirubin 0.6 (0.2-1.3) mg/dL AST 21 (14-36) U/L ALT 19 (4-34) U/L Alkaline Phosphatase 73 (38-126) U/L Troponin I <0.012 (0.000-0.034) ng/mL Total Protein 6.8 (6.3-8.2) g/dL Albumin 4.3 (3.5-5.0) g/dL Disposition Clinical Impression: Cerebral infarct Disposition: ADMITTED IP TO THIS HOSP Referrals: Henrique Hardy MD [Primary Care Provider] - 1-2 days Time of Disposition: 12:31
[2024-10-02 10:37] LABS: Basophils % (A) 0 %; Eosinophils # (A) 0.1 k/uL (0-0.7); Eosinophils % (A) 1 %; HCT 46.2 % (34.0-46.0); HGB 15.5 gm/dL (11.4-16.0); Lymphocytes # (A) 1.2 k/uL (1.0-4.8); Lymphocytes % (A) 10 %; MCH 29.8 pg (25.0-35.0); MCHC 33.7 g/dL (31.0-37.0); MCV 88.4 fL (80.0-100.0); Mean Platelet Volume 7.6; Monocytes # (A) 0.6 k/uL (0-1.0); Monocytes % (A) 5 %; Neutrophils # (A) 10.5 k/uL (1.3-7.7); Neutrophils % (A) 84 %; Platelet Count 284 k/uL (150-450); RBC 5.23 m/uL (3.80-5.40); RDW 13.4 % (11.5-15.5); WBC 12.5 k/uL (3.8-10.6)
[2024-10-02] MEDS: ONDANSETRON 4 MG/2 ML VIAL IVP STA (10:39)
[2024-10-02] MEDS: MECLIZINE 12.5 MG TAB PO STA (10:39)
[2024-10-02] MEDS: SODIUM CHLORIDE 0.9% 1,000 ML IV STA (10:40)
[2024-10-02 10:54] LABS: ALT 19 U/L (4-34); African American GFR (CKD) >90 (>60 ml/min/1.73 sqM); Albumin 4.3 g/dL (3.5-5.0); Anion Gap 9 mmol/L; Blood Urea Nitrogen 11 mg/dL (7-17); Calcium 9.2 mg/dL (8.4-10.2); Carbon Dioxide 19 mmol/L (22-30); Chloride 112 mmol/L (98-107); Glucose 126 mg/dL (74-99); Non-African American GFR(CKD) >90 (>60 ml/min/1.73 sqM); Sodium 140 mmol/L (137-145); Total Bilirubin 0.6 mg/dL (0.2-1.3); Total Protein 6.8 g/dL (6.3-8.2)
--- NOTE | 2024-10-02 11:21 | CT ---
EXAMINATION TYPE: CT brain wo con DATE OF EXAM: 10/02/2024 COMPARISON: None CLINICAL INDICATION: Female, 44 years old with history of dizziness; PHH, Dizziness x [address] DLP: 1162.4 mGycm Automated exposure control for dose reduction was used. Findings: The ventricles, basal cisterns and sulci over the convexities are within normal limits and there is n o mass effect or shift of midline structures. There is a focal area of subtle decreased density and loss of the staley-white differentiation in the p osterior right frontal lobe consistent with an acute ischemic infarct. There is no acute intra or ext ra-axial hemorrhage. The posterior fossa including the brainstem, fourth ventricle and cerebellar pontine angles appear no rmal. Intraorbital contents appear normal and symmetric. Visualized paranasal sinuses and mastoid air cells are well aerated. The calvarium is intact. IMPRESSION: Small acute ischemic infarct in the posterior right frontal lobe. There is no acute bleed or mass eff ect. ER doctor was notified of this important finding on 10/02/2024 at 11:17 AM [facility], , 10/02/2024 11:19 AM
--- NOTE | 2024-10-02 11:22 | XR ---
Chest, 2 view. HISTORY: Dizziness and cough. COMPARISON: TECHNIQUE: PA and lateral views the chest are obtained. FINDINGS: The lungs are clear and there is no consolidative or interstitial opacity. There is no pleural effusion or pneumothorax. The heart, pulmonary vasculature, mediastinum and katarina appear normal. The osseous structures are intact. IMPRESSION: No significant abnormality seen. No acute cardiopulmonary disease. [facility], , 10/02/2024 11:20 AM
[2024-10-02 11:28] LABS: AST 21 U/L (14-36); Alkaline Phosphatase 73 U/L (38-126)
[2024-10-02 12:12] LABS: Appearance,Urine Clear (Clear); Bacteria,Urine Rare /hpf; Bilirubin,Urine Negative (Negative); Blood,Urine Large (Negative); Color,Urine Light Yellow; Glucose,Urine (UA) Negative (Negative); Ketones,Urine 1+ (Negative); Leukocyte Esterase,Urine Trace (Negative); Mucus,Urine Many /hpf; Nitrite,Urine Negative (Negative); Protein,Urine 1+ (Negative); RBC,Urine 27 /hpf (0-5); Specific Gravity,Urine 1.023 (1.001-1.035); Squamous Epithelial Cell,Urine 3 /hpf (0-4); Urobilinogen,Urine <2.0 mg/dL (<2.0); WBC,Urine 7 /hpf (0-5)
[2024-10-02] MEDS ORDERED: Acetaminophen-Codeine 300-30mg TAB PO PRN (12:23)
[2024-10-02] MEDS ORDERED: NALOXONE 0.4 MG/ML 1 ML VIAL IV PRN (12:23)
[2024-10-02] MEDS ORDERED: MORPHINE SULFATE 4 MG/ML SYRINGE IV PRN (12:23)
[2024-10-02] MEDS: NICOTINE 7MG/24HR PATCH TRANSDERM STA (12:49)
[2024-10-02] MEDS: ASPIRIN 81 MG PO STA (19:56)
--- NOTE | 2024-10-02 20:33 | CT ---
EXAMINATION TYPE: CT angio head neck DATE OF EXAM: 10/02/2024 8:19 PM COMPARISON: None. CLINICAL INDICATION: Female, 44 years old with history of CVA, rule out dissection or occlusion; [facility], Pt to ED for dizziness, nausea, vomiting, fatigue, vision changes, and headache. Denies numbness/ti ngling, slurred speech. TECHNIQUE: Axially acquired helical CT angiogram of the head and neck was obtained with contrast. Axi al images are supplemented with 3D reconstructions and MIP images which were post-processed at an in dependent workstation. NASCET criteria used. Contrast used:65cc mL of Isovue 370 with IV Contrast, Oral contrast used: None. CT DLP: 920.5 mGycm, Automated exposure control for dose reduction was used. FINDINGS: CTA HEAD: No evidence of acute intracranial hemorrhage, mass effect, or midline shift. The ventricles, sulci, a nd cisterns are unremarkable. Vertebral arteries: The vertebral arteries are patent. Vertebral artery dominance: Codominant Basilar artery: The basilar artery is intact. The basilar artery bifurcation is normal. Internal Carotid arteries: The cervical, petrous, cavernous and supraclinoid segments are normal. LUCA: Patent with no evidence of aneurysm. ACOM: Present without evidence of aneurysm. MCA: Patent with no evidence of aneurysm. FILLER ROOM ATTENDANT: Patent with no evidence of aneurysm. PCOM: Hypoplastic bilaterally. Dural sinuses: Patent. CTA NECK: Right Carotid System: The common carotid artery and external carotid artery are patent. The carotid bifurcation demonstrate s no evidence of hemodynamically significant stenosis. The remaining portions of the internal carotid artery demonstrate normal size without significant narrowing. Left Carotid System: The common carotid artery and external carotid artery are patent. The carotid bifurcation demonstrate s no evidence of hemodynamically significant stenosis. The remaining portions of the internal carotid artery demonstrate normal size without significant narrowing. Vertebral arteries are patent without evidence hemodynamically significant stenosis. There is a three-vessel aortic arch. The origins of the great vessels are patent. No evidence of hemo dynamically significant stenosis. Upper thorax: IMPRESSION: 1. No evidence of dissection of the cervical internal carotid arteries or vertebral arteries. Recomm end MRI for further evaluation, which is a more sensitive test for acute ischemia. 2. No any evidence of significant stenosis at the carotid bifurcations. 3. No evidence of intracranial high-grade stenosis or intracranial aneurysm. [facility], , 10/02/2024 8:30 PM
--- NOTE | 2024-10-03 08:07 | P.CNNES ---
History of Present Illness Consult date: 10/02/24 Requesting physician: Erika Calderon Reason for Consult: Frontal lobe infarct History of Present Illness: Patient is a 44-year-old right-handed female came to the hospital today at 9:28 AM for visual disturbance. Patient states that yesterday in the morning she woke up at 3:57 AM, and couldn't go to sleep. She light a cigarette, and then lay down and felt her vision was feared something different. She felt as if her eyes were crossed. She thought that she needed sleep. She went to sleep. When she woke up at 7 AM, got up to get the dog out,, light a cigarette and she had to stop and felt dizzy, as if she wanted to throw up. She then threw up a few times. Patient states that the day prior to all these symptoms, she had use of massage to her neck shoulder and back region, and she had felt much better after it, but the following day started with the symptoms as above. Vital signs on arrival blood pressure 142/80, pulse rate 104 temperature 98.6. Blood test shows WBC 12.5 hemoglobin 15.5, platelets are normal. CMP and troponin normal. UA shows large amount of blood. Trace leukocyte esterase. Influenza, RSV and coronavirus PCR negative. EKG showed sinus rhythm. Chest x- ray showed no significant abnormality or acute process. CT head revealed small acute ischemic infarct in the posterior right frontal lobe. There is no acute blood or mass effect. I personally reviewed CT head agree with the findings. Patient states on 03/26/2024, she developed numbness of the right leg all the way to the waist and also burning of the left knee. A couple weeks later, she did some massage and about 4 days later she woke up with numbness of the left occipital region, around her left ear and left shoulder region. 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 Patient states that interestingly after she had the massage on her neck and shoulder region the day before current symptoms started, the numbness of the left side of the head and around her left ear went away and she felt well, except that she woke up with the symptoms the following day. She does go to a chiropractor off and on for years. Home medications include vitamin D, iron and amlodipine. Patient does not take any antiplatelet medication. Patient has smoked half pack per day since age 15. She did quit for about 3 years during, but still smokes as above. Denies any alcohol use or marijuana. Does not take any control pills. Review of Systems All pertinent positive and negative review of systems mentioned in the HPI, otherwise unremarkable. Past Medical History Past Medical History: Hypertension Additional Past Medical History / Comment(s): kidney stones History of Any Multi-Drug Resistant Organisms: None Reported Past Surgical History: Section, Hernia Repair, Orthopedic Surgery Past Psychological History: No Psychological Hx Reported Smoking Status: Current every day smoker Past Alcohol Use History: Rare Past Drug Use History: None Reported Medications and Allergies Home Medications Medication Instructions Recorded Confirmed Type Ergocalciferol [Vitamin D2 (1250 1,250 mcg PO MO 10/02/24 10/02/24 History Mcg = 22573 Iu)] Ferrous Sulfate [Feosol] 325 mg PO W/SUPPER 10/02/24 10/02/24 History amLODIPine [Norvasc] 10 mg PO HS 10/02/24 10/02/24 History Allergies Allergy/AdvReac Type Severity Reaction Status Date / Time No Known Allergies Allergy Verified 10/02/24 12:37 Physical Examination - Vital Signs Vital Signs: Vital Signs Temp Pulse Resp BP Pulse Ox 10/02/24 15:38 97.9 F 102 H 18 139/82 96 10/02/24 13:52 98.9 F 100 18 110/69 96 10/02/24 09:58 99.6 F 10/02/24 09:32 98.6 F 104 H 20 142/80 96 Intake and Output 10/02/24 10/02/24 10/02/24 06:59 14:59 22:59 Other: Weight 99.79 kg Patient is a middle aged female, very pleasant, in no acute distress. Patient is alert awake oriented to time place and person. Speech and language functions are normal. Patient can name and repeat very well. No aphasia or dysarthria. Attention, concentration and fund of knowledge is adequate. On cranial nerve examination, pupils are equal, round and reacting to light, visual galan are full on confrontation, with no neglect on double simultaneous stimulation. Extraocular muscles are intact with no nystagmus. Face is symmetric, tongue protrudes to the midline. Palatal elevation and sensation normal, hearing and shoulder shrug normal, facial sensation normal. On muscle strength testing, there is no pronator drift and the strength is normal in arms and legs distally and proximally. Deep tendon reflexes are symmetric 1+ in the biceps, 1+ Brachioradialis, 2+ at knees, 1+ ankles and plantars downgoing. Sensory to touch is equal with no neglect on double simultaneous stimulation. Cerebellar function showed no ataxia for [id number] testing. No dysdiadochokinesia. No ataxia for [id number] testing on either side. Tone and bulk of muscles normal. Gait deferred.. On general examination, there is no carotid bruit or murmur, S1-S2 audible. Chest is clear on consultation. Abdomen is soft nontender. No organomegaly, bowel sounds present. Peripheral pulses are present. No peripheral edema. Results - Laboratory Findings CBC and BMP: 10/02/24 10:00 10/02/24 10:00 Abnormal Lab Findings: Abnormal Labs 10/02/24 10/02/24 10/02/24 10:00 10:00 11:49 WBC 12.5 H Hct 46.2 H Neutrophils # 10.5 H Chloride 112 H Carbon Dioxide 19 L Glucose 126 H Urine Protein 1+ H Urine Ketones 1+ H Urine Blood Large H Ur Leukocyte Esterase Trace H Urine RBC 27 H Urine WBC 7 H Urine Bacteria Rare H Urine Mucus Many H Assessment and Plan Assessment: * Probable acute ischemic stroke right posterior frontal region. Exact cause is uncertain. Symptoms started the day after she underwent massaging of the neck and the shoulder region. Rule out carotid or vertebral artery dissection. * Hypertension * Tobacco use * Obesity Plan: * MRI of the brain without contrast, evaluate for acute CVA * 2-D echo with bubble study to rule out PFO * CTA head and neck showed: No evidence of dissection of the cervical internal carotid arteries or vertebral arteries. No evidence of significant stenosis at the carotid bifurcation. No evidence of intracranial high-grade stenosis or intracranial aneurysm. * Fasting a.m. lipid panel * Hemoglobin A1c 5.7 * Permissive hypertension for next 24-48 hours * Start aspirin 325 mg daily. * Neuro checks every 4 hours * Telemetry monitoring rule out any arrhythmia * PT, OT, speech therapy * Recommend complete tobacco cessation * DVT prophylaxis: Heparin 5000 units subcu every 8 hours * Neurology will continue to follow. Thank you for the consult.
[2024-10-03] MEDS: ASPIRIN 325 MG TAB PO SCH (08:20)
[2024-10-03] MEDS: ONDANSETRON 4 MG/2 ML VIAL IVP PRN (09:38)
[2024-10-03 10:17] LABS: Chol/HDL Ratio 4.65 Ratio; LDL Cholesterol,Calculated 132.8 mg/dL (0.0-131.0)
--- NOTE | 2024-10-03 11:10 | P.HPIM ---
History of Present Illness H&P Date: 10/03/24 History of present illness; patient is a 44-year-old lady with past medical history significant for hypertension, tobacco addiction who presented to the ER for dizziness. Patient said that she was all right 1 day back when he started noticing that she was getting dizzy. Patient stated that it started suddenly and she felt like the whole room was spinning around her, dizziness was worsened by movement. Patient also having severe nausea and vomiting associated with it. Patient stated that she could not focus with her eyes and had a hard time walking. There was no weakness of any extremity. There is no complaint of slurred speech or facial droop. Patient was having neck pains prior to this and was using a neck massager for it. Because of this dizziness, patient came to the ER Initial lab work done in the ER showed WBC 12.5, hemoglobin 15.5, platelet count 284, sodium 140, potassium 4, BUN 11, creatinine 0.52, glucose 126, HbA1c level was 5.7, AST was 21, ALT 19, UA done showed large amount of urine in the blood urine WBC 7 Influenza A not detected Influenza B not detected RSV not detected COVID-19 not detected EKG done in the ER showed heart rate of 94 , no ST segment elevation or depression seen, no T-wave inversions seen. Chest x-ray done in the ER showed no significant abnormality CT head done reviewed and showed small acute ischemic infarct in the posterior right frontal lobe CTA head and neck done showed no significant stenosis, aneurysm or thrombus in the intracranial circulation Patient admitted to internal medicine service REVIEW OF SYSTEMS: CONSTITUTIONAL: No fever, no malaise, no fatigue. HEENT: No recent visual problems or hearing problems. Denied any sore throat. CARDIOVASCULAR: No chest pain, orthopnea, PND, no palpitations, no syncope. PULMONARY: No shortness of breath, no cough, no hemoptysis. GASTROINTESTINAL: No diarrhea, no nausea, no vomiting, no abdominal pain. NEUROLOGICAL: As mentioned above HEMATOLOGICAL: Denies any bleeding or petechiae. GENITOURINARY: Denies any burning micturition, frequency, or urgency. MUSCULOSKELETAL/RHEUMATOLOGICAL: Denies any joint pain, swelling, or any muscle pain. ENDOCRINE: Denies any polyuria or polydipsia. The rest of the 14-point review of systems is negative. PHYSICAL EXAMINATION: GENERAL: The patient is alert and oriented x3, not in any acute distress. Well developed, well nourished. HEENT: Pupils are round and equally reacting to light. EOMI. No scleral icterus. No conjunctival pallor. Normocephalic, atraumatic. No pharyngeal erythema. No thyromegaly. CARDIOVASCULAR: S1 and S2 present. No murmurs, rubs, or gallops. PULMONARY: Chest is clear to auscultation, no wheezing or crackles. ABDOMEN: Soft, nontender, nondistended, normoactive bowel sounds. No palpable organomegaly. MUSCULOSKELETAL: No joint swelling or deformity. EXTREMITIES: No cyanosis, clubbing, or pedal edema. NEUROLOGICAL: Gross neurological examination did not reveal any focal deficits. SKIN: No rashes. Assessment and plan Acute CVA Hypertension Tobacco addiction Monitor vital signs Monitor CBC Monitor CMP Continue telemetry monitoring Neurochecks Ordered MRI brain Ordered 2D echo ordered lipid panel Ordered TSH Allow permissive hypertension for the next 24 to 48 hours, treat for blood pre ssure systolic more than 190 and diastolic above 110 Neurology consulted PT, OT, speech evaluation Labs and medication were reviewed.. Continue same treatment. Continue with symptomatic treatment. Resume home medication. Monitor labs and vitals. DVT and GI prophylaxis. Further recommendations as per clinical course of the patient Dictation was produced using [employer] dictation software. please excuse any grammatical, word or spelling errors. Past Medical History Past Medical History: Hypertension Additional Past Medical History / Comment(s): kidney stones History of Any Multi-Drug Resistant Organisms: None Reported Past Surgical History: Section, Hernia Repair, Orthopedic Surgery Past Anesthesia/Blood Transfusion Reactions: No Reported Reaction Past Psychological History: No Psychological Hx Reported Smoking Status: Current every day smoker Past Alcohol Use History: Rare Past Drug Use History: None Reported Medications and Allergies Home Medications Medication Instructions Recorded Confirmed Type Ergocalciferol [Vitamin D2 (1250 1,250 mcg PO MO 10/02/24 10/02/24 History Mcg = 91504 Iu)] Ferrous Sulfate [Feosol] 325 mg PO W/SUPPER 10/02/24 10/02/24 History amLODIPine [Norvasc] 10 mg PO HS 10/02/24 10/02/24 History Allergies Allergy/AdvReac Type Severity Reaction Status Date / Time No Known Allergies Allergy Verified 10/02/24 12:37 Physical Exam Vitals: Vital Signs Temp Pulse Pulse Resp BP BP Pulse Ox 10/03/24 08:15 98 18 130/74 95 10/03/24 04:00 97.9 F 76 20 118/87 95 10/03/24 00:00 94 16 131/79 95 10/02/24 20:48 141/88 10/02/24 20:00 98.1 F 101 H 18 170/91 98 10/02/24 15:38 97.9 F 102 H 18 139/82 96 10/02/24 13:52 98.9 F 100 18 110/69 96 10/02/24 09:58 99.6 F Intake and Output 10/02/24 10/03/24 10/03/24 22:59 06:59 14:59 Intake Total 500 Balance 500 Intake: Oral 500 Other: Voiding Method Toilet Toilet Toilet # Voids 2 1 Weight 99.79 kg Results CBC & Chem 7: 10/02/24 10:00 10/02/24 10:00 Labs: Abnormal Lab Results - Last 24 Hours (Table) 10/02/24 10/02/24 10/02/24 Range/Units 10:00 10:00 11:49 WBC 12.5 H (3.8-10.6) k/uL Hct 46.2 H (34.0-46.0) % Neutrophils # 10.5 H (1.3-7.7) k/uL Chloride 112 H (98-107) mmol/L Carbon Dioxide 19 L (22-30) mmol/L Glucose 126 H (74-99) mg/dL Urine Protein 1+ H (Negative) Urine Ketones 1+ H (Negative) Urine Blood Large H (Negative) Ur Leukocyte Esterase Trace H (Negative) Urine RBC 27 H (0-5) /hpf Urine WBC 7 H (0-5) /hpf Urine Bacteria Rare H (None) /hpf Urine Mucus Many H (None) /hpf Thrombosis Risk Factor Assmnt - Choose All That Apply Any of the Below Risk Factors Present?: Yes Each Factor Represents 1 point: Age 41-60 years Other Risk Factors: No Thrombosis Risk Factor Assessment Total Risk Factor Score: 1 Thrombosis Risk Factor Assessment Level: Low Risk
[2024-10-03] MEDS: NICOTINE 7MG/24HR PATCH TRANSDERM SCH (14:06)
--- NOTE | 2024-10-03 15:40 | MR ---
EXAMINATION TYPE: MR brain wo/w con DATE OF EXAM: 10/03/2024 2:02 PM COMPARISON: CT 10/02/2024. CLINICAL INDICATION: Female, 44 years old with history of CVA, Dizziness TECHNIQUE: Multi planar, multi sequence imaging was performed through the brain including: T1, T2, In version recovery, susceptibility weighted imaging and gradient echo imaging and Diffusion weighted im aging. The patient was then given intravenous contrast and multi planar, T1 fat-saturation images wer e obtained. IV Contrast: 10 mL Gadobutrol FINDINGS: Area of concern within the right frontal lobe with vasogenic edema correlate with enhancing mass laisha uring 5 mm with more central enhancement there is mild restricted diffusion within the mass... Severe in the left frontal lobe also present measuring 6 mm with predominantly peripheral thin enhancement. The staley-white junctions, ventricular system, basal cisterns appear unremarkable. Diffusion-weighted imaging shows no evidence of restricted diffusion to suggest acute/subacute infarct. Intracranial ar terial flow voids are maintained. Midline structures show no abnormality. Scattered foci of high T2 s ignal intensity are seen within the periventricular white matter which do not definitively have enhan cement The susceptibility weighted images do not reveal any evidence for micro-hemorrhage. The bone marrow signal is within normal limits. Paranasal sinuses and mastoid air cells: No significant paranasal sinus disease. Visualized orbits: Orbital contents are intact. IMPRESSION: 1. There is at least 2 enhancing lesions within the staley-white matter junction in the bilateral front al lobes correlate for history of malignancy. No evidence for acute/subacute infarct. 2. Few scattered white matter changes possibly related to nonenhancing lesions described above. [facility], , 10/03/2024 3:38 PM
[2024-10-03] MEDS ORDERED: RX INFO: IV CONTRAST WAS GIVEN 1 EACH MISC MISCELLANE PRN (17:02)
--- NOTE | 2024-10-04 10:29 | CT ---
EXAMINATION TYPE: CT ChestAbdPelvis w con DATE OF EXAM: 10/04/2024 10:08 AM COMPARISON: 07/22/2021, 04/07/2015. CLINICAL INDICATION: Female, 44 years old with history of mri positive for possible malignancy; PH, MRI suggests possible malignancy Technique: CT ChestAbdPelvis w con; Multiple axial images were obtained. Two-dimensional coronal and sagittal reconstructions were obtained. Contrast used:100 mL of Isovue 300 with IV Contrast, (None if empty) Oral contrast used: without Oral Contrast CT DLP: 1836.7 mGycm, Automated exposure control for dose reduction was used. Findings: CHEST: LUNGS/ PLEURA: No focal consolidation, pneumothorax or pleural effusion. AIRWAY: Patent and unremarkable. HEART: Size within normal limits. MEDIASTINUM: No gross evidence of adenopathy. VASCULATURE: No aortic aneurysm. MUSCULOSKELETAL: No acute osseous abnormalities. SOFT TISSUES/LYMPH NODES: Unremarkable. LOWER NECK: No significant findings. ABDOMEN: ABDOMEN LIVER: Unremarkable GALLBLADDER AND BILE DUCTS: Unremarkable. PANCREAS: Unremarkable. SPLEEN: Unremarkable. ADRENAL GLANDS: Unremarkable. KIDNEYS AND URETERS: No evidence of hydronephrosis. Nonobstructing right 4 mm calculus.. The ureters are unremarkable. PELVIS BLADDER: Unremarkable REPRODUCTIVE: Enlarged uterus with multiple suspected fibroids. ABDOMEN & PELVIS STOMACH AND BOWEL: No evidence of bowel obstruction. The appendix is normal. PERITONEUM/RETROPERITONEUM: No evidence of pneumoperitoneum or free fluid. VASCULATURE: No evidence of aortic aneurysm. MUSCULOSKELETAL: No acute osseous abnormalities, grade 2 anterolisthesis cough at L5-S1 with bilatera l spondylolysis. LYMPH NODES: No gross evidence for lymphadenopathy. SOFT TISSUE/ABDOMINAL WALL: Unremarkable IMPRESSION: 1. No mass or lymphadenopathy identified. Given MRI findings correlate for demyelination at this po int. 2. 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 [facility], , 10/04/2024 10:26 AM
--- NOTE | 2024-10-04 10:38 | P.PN ---
Subjective Progress Note Date: 10/03/24 Patient was seen for follow-up. Patient offers no new complaints. Patient is sitting comfortably in the bed. Appears kind of anxious and somewhat emotional. Objective - Vital Signs Vital signs: Vital Signs Temp 97.9 F 10/03/24 04:00 Pulse 117 H 10/03/24 16:00 Resp 19 10/03/24 16:00 BP 131/67 10/03/24 16:00 Pulse Ox 95 10/03/24 16:00 FiO2 Intake & Output 10/02/24 10/03/24 10/03/24 18:59 06:59 18:59 Intake Total 500 Balance 500 Weight 99.79 kg 99.79 kg Intake: Oral 500 Other: Voiding Method Toilet Toilet # Voids 1 - Exam Unchanged. Mentation normal. - Labs CBC & Chem 7: 10/02/24 10:00 10/02/24 10:00 Labs: Abnormal Lab Results - Last 24 Hours (Table) 10/02/24 Range/Units 10:00 LDL Cholesterol, Calc 132.8 H (0.0-131.0) mg/dL Assessment and Plan Assessment: * Probable acute ischemic stroke right posterior frontal region. Exact cause is uncertain. Symptoms started the day after she underwent massaging of the neck and the shoulder region. Rule out carotid or vertebral artery dissection. * Hypertension * Tobacco use * Obesity Plan: * MRI of the brain with and without contrast revealed there is at least 2 enhancing lesions within the staley-white matter junction in the bilateral frontal lobes, correlate for history of malignancy. No evidence for acute/subacute infarct. Few scattered white matter changes, possibly related to nonenhancing lesion described above. I personally reviewed MRI, and appears more like demyelinating in nature. However I spoke to the radiologist Dr. Virk, who believes the lesions are at staley-white matter junction, therefore he is more concerned about metastasis. If no malignancy, would need workup for [employer] demyelination. * We will check CT of chest abdomen pelvis rule out any malignancy. Discussed with primary team. * MRI of the cervical and thoracic spine with and without contrast to evaluate f or demyelinating disease like MS. * May need lumbar puncture * Await 2-D echo with bubble study to rule out PFO * CTA head and neck showed: No evidence of dissection of the cervical internal carotid arteries or vertebral arteries. No evidence of significant stenosis at the carotid bifurcation. No evidence of intracranial high-grade stenosis or intracranial aneurysm. * Fasting a.m. lipid panel cholesterol 200, LDL 132, HDL 43, triglycerides 121. Start Lipitor 20 mg daily. * Hemoglobin A1c 5.7 * B12, folate, J CARLOS, Lyme, B12 * Optimize control of blood pressure. * Start aspirin 325 mg daily. * Neuro checks every 4 hours * Telemetry monitoring rule out any arrhythmia * PT, OT, speech therapy * Recommend complete tobacco cessation * DVT prophylaxis: Patient low risk. Patient ambulatory.
--- NOTE | 2024-10-04 12:53 | CA ---
Transthoracic Echo Report Name: Marti Chew Age: 44 Gender: F : 1980 Exam Date: 10/04/2024 10:34 Exam Location: [facility] Ht (in): 59 Wt (lb): 220 Ordering Physician: Francy Nagel MD Attending/Referring Phys: Blending Machine Operator Anayeli Thompson RDCS Procedure CPT: Indications: CVA Cardiac Hx: Technical Quality: Good Contrast 1: Agitated Saline Total Dose (mL): 9 Contrast 2: Total Dose (mL): MEASUREMENTS (Male / Female) Normal Values 2D ECHO LV Diastolic Diameter PLAX 4.3 cm 4.2 - 5.9 / 3.9 - 5.3 cm LV Systolic Diameter PLAX 2.8 cm IVS Diastolic Thickness 1.2 cm 0.6 - 1.0 / 0.6 - 0.9 cm LVPW Diastolic Thickness 1.3 cm 0.6 - 1.0 / 0.6 - 0.9 cm LV Relative Wall Thickness 0.6 RV Internal Dim ED PLAX 3.4 cm LA Systolic Diameter LX 3.7 cm 3.0 - 4.0 / 2.7 - 3.8 cm LA Volume 55.1 cm??? 18 - 58 / 22 - 52 cm??? LA Volume Index 26.2 cm???/m??? 16 - 28 cm???/m??? M-MODE Aortic Root Diameter MM 3.4 cm AV Cusp Separation MM 2.6 cm DOPPLER AV Peak Velocity 157.7 cm/s AV Peak Gradient 10.0 mmHg MV Area PHT 5.1 cm??? Mitral E Point Velocity 92.2 cm/s Mitral A Point Velocity 92.2 cm/s Mitral E to A Ratio 1.0 MV Deceleration Time 148.4 ms FINDINGS Left Ventricle Left ventricular ejection fraction is estimated at 55-60 %. Left ventricular cavity size normal. Mildly increased septal wall thickness. Mildly increased posterior wall thickness. Right Ventricle Mild right ventricular dilatation. Unable to estimate the right ventricular systolic pressure. Right Atrium Normal right atrial size. No right atrial thrombus or mass seen. Negative agitated saline bubble study for right to left shunt. Left Atrium Mildly increased left atrial volume. Mildly increased left atrial area. Mitral Valve Structurally normal mitral valve. No mitral stenosis, regurgitation or prolapse. Aortic Valve Trileaflet aortic valve. No aortic valve stenosis or regurgitation. Tricuspid Valve Structurally normal tricuspid valve. No tricuspid stenosis, regurgitation or prolapse. Pulmonic Valve Structurally normal pulmonic valve. No pulmonic regurgitation. Pericardium No pericardial effusion. Aorta Normal size aortic root and proximal ascending aorta. CONCLUSIONS Normal LV function Negative bubble study Previewed by: Dr. Boy Valles MD (Electronically Signed) Final Date: 04 October 2024 12:52
--- NOTE | 2024-10-04 14:37 | P.PN ---
Subjective Progress Note Date: 10/04/24 patient is a 44-year-old lady with past medical history significant for hypertension, tobacco addiction who presented to the ER for dizziness. Patient said that she was all right 1 day back when he started noticing that she was getting dizzy. Patient stated that it started suddenly and she felt like the whole room was spinning around her, dizziness was worsened by movement. Patient also having severe nausea and vomiting associated with it. Patient stated that she could not focus with her eyes and had a hard time walking. There was no weakness of any extremity. There is no complaint of slurred speech or facial droop. Patient was having neck pains prior to this and was using a neck massager for it. Because of this dizziness, patient came to the ER Initial lab work done in the ER showed WBC 12.5, hemoglobin 15.5, platelet count 284, sodium 140, potassium 4, BUN 11, creatinine 0.52, glucose 126, HbA1c level was 5.7, AST was 21, ALT 19, UA done showed large amount of urine in the blood urine WBC 7 Influenza A not detected Influenza B not detected RSV not detected COVID-19 not detected EKG done in the ER showed heart rate of 94 , no ST segment elevation or depression seen, no T-wave inversions seen. 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 Patient seen and examined. MRI brain done showed 2 enhancing lesions within the staley-white matter junction in the bilateral frontal lobes, no evidence for acute/subacute infarct. CT abdomen pelvis and chest done showed no acute abnormality with no evidence of any mass. 2D echo done showed normal LV function MRI thoracic and cervical spine ordered REVIEW OF SYSTEMS: CONSTITUTIONAL: No fever, no malaise,. CARDIOVASCULAR: No chest pain, no palpitations, no syncope. PULMONARY: No shortness of breath, no cough, GASTROINTESTINAL: No diarrhea, no nausea, no vomiting, no abdominal pain. NEUROLOGICAL: No headaches, no weakness, PHYSICAL EXAMINATION: GENERAL: The patient is alert and oriented x3, not in any acute distress. Well developed, well nourished. HEENT: Pupils are round and equally reacting to light. EOMI. No scleral icterus. No conjunctival pallor. Normocephalic, atraumatic. No pharyngeal erythema. No thyromegaly. CARDIOVASCULAR: S1 and S2 present. No murmurs, rubs, or gallops. PULMONARY: Chest is clear to auscultation, no wheezing or crackles. ABDOMEN: Soft, nontender, nondistended, normoactive bowel sounds. No palpable organomegaly. MUSCULOSKELETAL: No joint swelling or deformity. EXTREMITIES: No cyanosis, clubbing, or pedal edema. NEUROLOGICAL: Gross neurological examination did not reveal any focal deficits. SKIN: No rashes. Assessment and plan Dizziness Abdominal MRI showing 2 enhancing lesions in the staley-white matter, could be MS Hypertension Tobacco addiction Monitor vital signs Monitor CBC Monitor CMP Continue telemetry monitoring CT abdomen pelvis and chest done showed no acute abnormality with no evidence of any mass. 2D echo done showed normal LV function Continue Lipitor MRI thoracic and cervical spine ordered Neurology following Labs and medication were reviewed.. Continue same treatment. Continue with symptomatic treatment. Resume home medication. Monitor labs and vitals. DVT and GI prophylaxis. Further recommendations as per clinical course of the patient Dictation was produced using [employer] dictation software. please excuse any grammatical, word or spelling errors. Objective - Vital Signs Vital signs: Vital Signs Temp 98.2 F 10/04/24 11:45 Pulse 98 10/04/24 11:45 Resp 16 10/04/24 11:45 BP 121/76 10/04/24 11:45 Pulse Ox 96 10/04/24 11:45 FiO2 Intake & Output 10/03/24 10/04/24 10/04/24 18:59 06:59 18:59 Intake Total 138 Balance 138 Weight 99.6 kg Intake: IV 20 Invasive Line 1 20 Oral 118 Other: Voiding Method Toilet Toilet Toilet # Voids 1 2 - Labs CBC & Chem 7: 10/02/24 10:00 10/02/24 10:00
[2024-10-04] MEDS: ATORVASTATIN 20 MG TAB PO SCH (20:17)
--- NOTE | 2024-10-04 22:09 | P.PN ---
Subjective Progress Note Date: 10/04/24 Patient was seen for follow-up. Patient offers no new complaints. Patient is sitting comfortably in the bed. Patient states her gaze is better. She continues to have some numbness of the left side of the head and shoulder region in the left knee region. No new concerns. Her balance is normal. Objective - Vital Signs Vital signs: Vital Signs Temp 98.2 F 10/04/24 11:45 Pulse 97 10/04/24 15:43 Resp 16 10/04/24 15:43 BP 140/67 10/04/24 15:43 Pulse Ox 96 10/04/24 15:43 FiO2 Intake & Output 10/03/24 10/04/24 10/04/24 18:59 06:59 18:59 Intake Total 138 Balance 138 Weight 99.6 kg Intake: IV 20 Invasive Line 1 20 Oral 118 Other: Voiding Method Toilet Toilet Toilet # Voids 1 2 - Exam Unchanged. Mentation normal. Gait normal. Muscle strength normal. No ataxia. - Labs CBC & Chem 7: 10/02/24 10:00 10/02/24 10:00 Assessment and Plan Assessment: * Probable DIRECTOR OF SPEECH PATHOLOGY demyelination, rule out multiple sclerosis. Brain MRI revealed at least 2 enhancing lesions within the staley-white matter junction in the bilateral frontal lobes. * Hypertension * Tobacco use * Obesity Plan: * MRI of the brain with and without contrast revealed there is at least 2 enhancing lesions within the staley-white matter junction in the bilateral frontal lobes, correlate for history of malignancy. No evidence for acute/subacute infarct. Few scattered white matter changes, possibly related to nonenhancing lesion described above. I personally reviewed MRI, and appears more like demyelinating in nature. However I spoke to the radiologist Dr. Virk, who believes the lesions are at staley-white matter junction, therefore he is more concerned about metastasis. If no malignancy, would need workup for DIRECTOR OF SPEECH PATHOLOGY demyelination. * CT of the chest abdomen pelvis with contrast revealed no mass or lymphaden opathy. Grade 2 anterolisthesis at L5-S1 with bilateral spondylosis.. * MRI of the cervical and thoracic spine with and without contrast to evaluate for demyelinating disease like MS. * May need lumbar puncture to evaluate for oligoclonal bands. * 2D echo revealed normal LV function with EF 55 to 60%. Mildly increased septal wall thickness. Negative agitated saline bubble study for [id number] shunt. No valvular abnormalities. * CTA head and neck showed: No evidence of dissection of the cervical internal carotid arteries or vertebral arteries. No evidence of significant stenosis at the carotid bifurcation. No evidence of intracranial high-grade stenosis or intracranial aneurysm. * Fasting a.m. lipid panel cholesterol 200, LDL 132, HDL 43, triglycerides 121. Start Lipitor 20 mg daily. * Hemoglobin A1c 5.7 * Await B12, folate, J CARLOS, Lyme, B12 * Optimize control of blood pressure. * We will decrease aspirin regimen from 325 down to 81 mg, as CVA is less likely. * Patient is present does not have any significant symptoms. We discussed about starting Solu-Medrol for enhancing lesion in the brain. However the lesions are not very classical for MS, therefore we will hold off on steroids until MRI are completed. May consider lumbar puncture. * Recommend complete tobacco cessation * DVT prophylaxis: Patient low risk. Patient ambulatory. * Dr. Maged Fernández to resume neurology service in the morning.
[2024-10-05] MEDS: ASPIRIN 81 MG PO SCH (08:40)
--- NOTE | 2024-10-05 13:45 | P.PN ---
Subjective Progress Note Date: 10/05/24 patient is a 44-year-old lady with past medical history significant for hypertension, tobacco addiction who presented to the ER for dizziness. Patient said that she was all right 1 day back when he started noticing that she was getting dizzy. Patient stated that it started suddenly and she felt like the whole room was spinning around her, dizziness was worsened by movement. Patient also having severe nausea and vomiting associated with it. Patient stated that she could not focus with her eyes and had a hard time walking. There was no weakness of any extremity. There is no complaint of slurred speech or facial droop. Patient was having neck pains prior to this and was using a neck massager for it. Because of this dizziness, patient came to the ER Initial lab work done in the ER showed WBC 12.5, hemoglobin 15.5, platelet count 284, sodium 140, potassium 4, BUN 11, creatinine 0.52, glucose 126, HbA1c level was 5.7, AST was 21, ALT 19, UA done showed large amount of urine in the blood urine WBC 7 Influenza A not detected Influenza B not detected RSV not detected COVID-19 not detected EKG done in the ER showed heart rate of 94 , no ST segment elevation or depression seen, no T-wave inversions seen. 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 Patient seen and examined. MRI brain done showed 2 enhancing lesions within the staley-white matter junction in the bilateral frontal lobes, no evidence for acute/subacute infarct. CT abdomen pelvis and chest done showed no acute abnormality with no evidence of any mass. 2D echo done showed normal LV function MRI thoracic and cervical spine ordered 10/05. Patient seen and examined. States she feels the same as yesterday. Scheduled for MRI thoracic and cervical spine for today. REVIEW OF SYSTEMS: CONSTITUTIONAL: No fever, no malaise,. CARDIOVASCULAR: No chest pain, no palpitations, no syncope. PULMONARY: No shortness of breath, no cough, GASTROINTESTINAL: No diarrhea, no nausea, no vomiting, no abdominal pain. NEUROLOGICAL: No headaches, no weakness, PHYSICAL EXAMINATION: GENERAL: The patient is alert and oriented x3, not in any acute distress. Well developed, well nourished. HEENT: Pupils are round and equally reacting to light. EOMI. No scleral icterus. No conjunctival pallor. Normocephalic, atraumatic. No pharyngeal erythema. No t hyromegaly. CARDIOVASCULAR: S1 and S2 present. No murmurs, rubs, or gallops. PULMONARY: Chest is clear to auscultation, no wheezing or crackles. ABDOMEN: Soft, nontender, nondistended, normoactive bowel sounds. No palpable organomegaly. MUSCULOSKELETAL: No joint swelling or deformity. EXTREMITIES: No cyanosis, clubbing, or pedal edema. NEUROLOGICAL: Gross neurological examination did not reveal any focal deficits. SKIN: No rashes. Assessment and plan Dizziness Abdominal MRI showing 2 enhancing lesions in the staley-white matter, could be MS Hypertension Tobacco addiction Monitor vital signs Monitor CBC Monitor CMP Continue telemetry monitoring CT abdomen pelvis and chest done showed no acute abnormality with no evidence of any mass. 2D echo done showed normal LV function Continue Lipitor MRI thoracic and cervical spine ordered Neurology following, possible LP depending on the results of MRI thoracic and cervical spine Labs and medication were reviewed.. Continue same treatment. Continue with symptomatic treatment. Resume home medication. Monitor labs and vitals. DVT a nd GI prophylaxis. Further recommendations as per clinical course of the patient Dictation was produced using [employer] dictation software. please excuse any grammatical, word or spelling errors. Objective - Vital Signs Vital signs: Vital Signs Temp 98.6 F 10/05/24 12:00 Pulse 93 10/05/24 12:00 Resp 16 10/05/24 12:00 BP 126/76 10/05/24 12:00 Pulse Ox 95 10/05/24 12:00 FiO2 Intake & Output 10/04/24 10/05/24 10/05/24 18:59 06:59 18:59 Intake Total 256 10 Balance 256 10 Weight 98.3 kg Intake: IV 20 10 Invasive Line 1 20 10 Oral 236 Other: Voiding Method Toilet Toilet Toilet # Voids 2 1 - Labs CBC & Chem 7: 10/02/24 10:00 10/02/24 10:00 Labs: Abnormal Lab Results - Last 24 Hours (Table) 10/04/24 Range/Units 14:40 J CARLOS Screen POSITIVE A (Negative)
--- NOTE | 2024-10-05 18:17 | P.PN ---
Subjective Progress Note Date: 10/05/24 I am seeing the patient for the first time during this admission. Please refer to Dr. Nagel's notes for further details. According the patient in March 2024 she had episode of numbness over the right lower extremity and she feels slightly got better but she continues to have it. She was evaluated in the ED and she stated she had imaging of the lumbar as well as the neck which did not reveal any significant stenosis or herniation. She denies of any neck pain or lower back pain. She followed up with the primary and was notified if she had any worsening symptoms then she will have MRI of her lumbar. Then she stated just midnight past [place] on 09/30/2024 around probably 4:00 she noticed that she had weird sensation over the face and she thinks was over the right side but not completely over the entire right side maybe she thinks was around the cheek lateral side of the nose then around 8:00 in morning she noticed that her vision was off. In our hospital she had MRI of the brain and it showed 2 enhancing lesion and my colleague was concerned about multiple sclerosis and the report for the MRI was concerned about ruling out malignancy. Objective - Vital Signs Vital signs: Vital Signs Temp 98.6 F 10/05/24 12:00 Pulse 93 10/05/24 12:00 Resp 16 10/05/24 12:00 BP 126/76 10/05/24 12:00 Pulse Ox 95 10/05/24 12:00 FiO2 Intake & Output 10/04/24 10/05/24 10/05/24 18:59 06:59 18:59 Intake Total 256 10 240 Balance 256 10 240 Weight 98.3 kg Intake: IV 20 10 Invasive Line 1 20 10 Oral 236 240 Other: Voiding Method Toilet Toilet Toilet # Voids 2 1 - Exam GENERAL: The patient is lying in bed and is not in acute distress. NEUROLOGICAL: Higher mental function: The patient is awake, alert, oriented to self, place and time. Patient is following commands. No aphasia and no neglect. Cranial nerves: The pupils are round, equal and reactive to light and accommodation. Visual galan are full to confrontation throughout. Extraocular movement is intact no nystagmus is noted. Facial sensation is normal to touch throughout. The facial strength is normal throughout. Tongue is midline and moved [id number] without any difficulty. No dysarthria is noted. Motor: Gait is normal. The strength is 5 over 5 throughout. Normal tone and bulk. Cerebellum: Normal finger to nose heel to young bilaterally. Sensation: Sensation is normal to touch throughout. - Labs CBC & Chem 7: 10/02/24 10:00 10/02/24 10:00 Labs: Abnormal Lab Results - Last 24 Hours (Table) 10/04/24 Range/Units 14:40 J CARLOS Screen POSITIVE A (Negative) Assessment and Plan Assessment: This is a 44-year-old woman who had numbness over the right lower extremity in March 2024 and midnight just past September 30, 2024 she noticed numbness over the right face then later in the morning she noticed she had blurry vision of the right eye. 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 Patient has multiple FLAIR lesions on the MRI with at least 2 enhancing lesions within the staley-white matter junction in the bilateral frontal lobes. She has positive J CARLOS rule out mimicker of MS. * Hypertension * Tobacco use * Obesity Plan: Pending report of MRI cervical spine thoracic spine to evaluate for demyelinating disease like MS. I consulted pain specialist for lumbar puncture for tomorrow and if not available then will speak with anesthesiology team tomorrow and will obtain oligoclonal bands, IgG index. I will speak with the reading radiologist for second opinion regarding the report since I feel her lesions on the FLAIR AND enhancement seems more dem ylinating and not malignancy. After speaking with radiologist and in agreement, will start the patient on IV Solu-Medrol 500 mg every 12 hours starting tomorrow for [address] Nagel started the patient on aspirin 81 mg daily during and lipitor for concern for stroke on initial presentation during this hospital visit and I will discontinue it since patient does not have a stroke. Vitamin B12 is 364, serum folate is 13.0, hemoglobin A1c is 5.7 Lyme test is negative, RSV is negative, SARS-CoV-2 PCR is negative, influenza AB PCR is negative J CARLOS is positive and pending titer I ordered mimickers for MS ESR, RPR, HTLV, HIV, TSH, SSA/SSB ab, anti dsDNA Ordered Vitamin D level, hepatitis panel Will defer the rest of medical management to primary team. The plan is discussed with patient, her cousin (who is at bedside) and her nurse. Time with Patient: Less than 30
[2024-10-05 19:28] LABS: ALT 22 U/L (4-34); AST 19 U/L (14-36); Alkaline Phosphatase 82 U/L (38-126); Bilirubin,Unconjugated 0.4 mg/dL (0.0-1.1); Total Bilirubin 0.4 mg/dL (0.2-1.3); Total Protein 6.5 g/dL (6.3-8.2)
--- NOTE | 2024-10-05 21:00 | MR ---
EXAMINATION TYPE: MR cspine/tspine wo/w con DATE OF EXAM: 10/05/2024 5:00 PM COMPARISON: None. 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 IV Contrast: 10 mL Gadobutrol (None, if empty) FINDINGS: The craniovertebral junction is normal. Vertebral body alignment is normal. C7-T1: No focal disc herniation or significant disc bulge is evident. No spinal canal stenosis or n eural foraminal stenosis is present. C6-7:Small subligamentous disc herniation is present with mild anterior thecal sac compression. This is better visualized on the sagittal plane images. Minimal anterior thecal sac compression is present . No cord contact is present No spinal canal stenosis or neural foraminal stenosis is present . C5-6: There is a large central disc herniation C5-6 with moderate anterior thecal sac compression. No cord contact is evident. No spinal canal stenosis is present. Neural foramen and mild narrowing. C4-5: No focal disc herniation or significant disc bulge is evident. No spinal canal stenosis or jennie ral foraminal stenosis is present. C3-4: No focal disc herniation or significant disc bulge is evident. No spinal canal stenosis or jennie ral foraminal stenosis is present. C2-3: No focal disc herniation or significant disc bulge is evident. No spinal canal stenosis or jennie ral foraminal stenosis is present. Findings no abnormal enhancement no cord signal abnormality evident within the cervical spine IMPRESSION: 1. Large broad central disc herniation with moderate anterior thecal sac compression C5-6. No AP spin al canal stenosis. 2. Small subligamentous central disc herniation C6-7 EXAMINATION TYPE: MR cspine/tspine wo/w con DATE OF EXAM: 10/05/2024 5:00 PM COMPARISON: None. 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 IV Contrast: 10 mL Gadobutrol (None, if empty) FINDINGS: Spinal cord maintains normal signal through its visualized course. Vertebral body alignment is normal. Vertebral body heights are preserved. Disc heights are preserved. Disc hydration levels are preserved. No spinal canal stenosis is evident. IMPRESSION: 1. No suspicious changes suggest multiple sclerosis within the spinal cord [facility], , 10/05/2024 8:58 PM
[2024-10-06 04:15] LABS: HIV 2 AB Non-Reactive (Non-Reactive); HIV AB P24 Non-Reactive (Non-Reactive); HIV P24 AG Non-Reactive (Non-Reactive)
[2024-10-06 05:17] LABS: DNA Double-Stranded Negative (Negative)
[2024-10-06] MEDS: methylPREDNISolone SOD SUCCIN 500 MG in SODIUM CHLORIDE 0.9% 100 ML IVPB SCH (13:51)
[2024-10-06] MEDS: PANTOPRAZOLE 40 MG/10 ML VIAL IVP SCH (13:52)
[2024-10-06] MEDS ORDERED: DEXTROSE 50% SYRINGE 50 ML IVP PRN ×2 (14:02)
[2024-10-06] MEDS: SODIUM CHLORIDE 0.9% 500 ML 500 ML IV ONE (14:57)
[2024-10-06] MEDS ORDERED: ALPRAZolam 0.25 MG TAB PO PRN (15:01)
--- NOTE | 2024-10-06 15:02 | P.PN ---
Subjective Progress Note Date: 10/06/24 patient is a 44-year-old lady with past medical history significant for hypertension, tobacco addiction who presented to the ER for dizziness. Patient said that she was all right 1 day back when he started noticing that she was getting dizzy. Patient stated that it started suddenly and she felt like the whole room was spinning around her, dizziness was worsened by movement. Patient also having severe nausea and vomiting associated with it. Patient stated that she could not focus with her eyes and had a hard time walking. There was no weakness of any extremity. There is no complaint of slurred speech or facial droop. Patient was having neck pains prior to this and was using a neck massager for it. Because of this dizziness, patient came to the ER Initial lab work done in the ER showed WBC 12.5, hemoglobin 15.5, platelet count 284, sodium 140, potassium 4, BUN 11, creatinine 0.52, glucose 126, HbA1c level was 5.7, AST was 21, ALT 19, UA done showed large amount of urine in the blood urine WBC 7 Influenza A not detected Influenza B not detected RSV not detected COVID-19 not detected EKG done in the ER showed heart rate of 94 , no ST segment elevation or depression seen, no T-wave inversions seen. 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 Patient seen and examined. MRI brain done showed 2 enhancing lesions within the staley-white matter junction in the bilateral frontal lobes, no evidence for acute/subacute infarct. CT abdomen pelvis and chest done showed no acute abnormality with no evidence of any mass. 2D echo done showed normal LV function MRI thoracic and cervical spine ordered 10/05. Patient seen and examined. States she feels the same as yesterday. Scheduled for MRI thoracic and cervical spine for today. 10/06. Patient seen and examined. Neurology planning to do LP. Cervical and thoracic spine done showed no suspicious changes for MS. Patient started on high-dose Solu-Medrol REVIEW OF SYSTEMS: CONSTITUTIONAL: No fever, no malaise,. CARDIOVASCULAR: No chest pain, no palpitations, no syncope. PULMONARY: No shortness of breath, no cough, GASTROINTESTINAL: No diarrhea, no nausea, no vomiting, no abdominal pain. NEUROLOGICAL: No headaches, no weakness, PHYSICAL EXAMINATION: GENERAL: The patient is alert and oriented x3, not in any acute distress. Well developed, well nourished. HEENT: Pupils are round and equally reacting to light. EOMI. No scleral icterus. No conjunctival pallor. Normocephalic, atraumatic. No pharyngeal erythema. No thyromegaly. CARDIOVASCULAR: S1 and S2 present. No murmurs, rubs, or gallops. PULMONARY: Chest is clear to auscultation, no wheezing or crackles. ABDOMEN: Soft, nontender, nondistended, normoactive bowel sounds. No palpable organomegaly. MUSCULOSKELETAL: No joint swelling or deformity. EXTREMITIES: No cyanosis, clubbing, or pedal edema. NEUROLOGICAL: Gross neurological examination did not reveal any focal deficits. SKIN: No rashes. Assessment and plan Dizziness Abdominal MRI showing 2 enhancing lesions in the staley-white matter, could be MS Hypertension Tobacco addiction Monitor vital signs Monitor CBC Monitor CMP Continue telemetry monitoring CT abdomen pelvis and chest done showed no acute abnormality with no evidence of any mass. 2D echo done showed normal LV function Continue Lipitor Ordered IV Solu-Medrol MRI thoracic and cervical spine showed no suspicious changes for MS Neurology following, planning LP, Labs and medication were reviewed.. Continue same treatment. Continue with symptomatic treatment. Resume home medication. Monitor labs and vitals. DVT and GI prophylaxis. Further recommendations as per clinical course of the patient Dictation was produced using [employer] dictation software. please excuse any grammatical, word or spelling errors. Objective - Vital Signs Vital signs: Vital Signs Temp 98.1 F 10/06/24 09:16 Pulse 93 10/06/24 09:16 Resp 20 10/06/24 09:16 BP 126/64 10/06/24 09:16 Pulse Ox 97 10/06/24 09:16 FiO2 Intake & Output 10/05/24 10/06/24 10/06/24 18:59 06:59 18:59 Intake Total 240 222 Balance 240 222 Intake: Oral 240 222 Other: Voiding Method Toilet Toilet # Voids 2 1 - Labs CBC & Chem 7: 10/02/24 10:00 10/02/24 10:00 Labs: Abnormal Lab Results - Last 24 Hours (Table) 10/04/24 10/05/24 Range/Units 14:40 18:44 J CARLOS Screen POSITIVE A (Negative) SS-B Ab Interp Positive A (Negative)
--- NOTE | 2024-10-06 16:14 | P.PN ---
Progress Note - Text Progress Note Date: 10/06/24 Ms. Chew, transferred to PACU for lumbar puncture today for CSF analysis to rule out multiple sclerosis. She took her aspirin 81 mg , then next day 325 mg, and followed by 81 mg on 10/05/2024. Procedure, complications, discussed with the patient. Discussed with the patient the risk of bleeding is minimal, but patient wants to get the procedure done safely. She would like to reschedule the procedure. I discussed with Dr. Castellon, and scheduled the lumbar puncture procedure done on October 09, 2024. Please contact anesthesia if you have any questions to discuss.
--- NOTE | 2024-10-06 16:31 | P.PN ---
Subjective Progress Note Date: 10/06/24 I am following-up with patient and she feels about the same. Objective - Vital Signs Vital signs: Vital Signs Temp 98.1 F 10/06/24 09:16 Pulse 95 10/06/24 14:51 Resp 16 10/06/24 14:51 BP 139/79 10/06/24 14:51 Pulse Ox 94 L 10/06/24 14:51 FiO2 Intake & Output 10/05/24 10/06/24 10/06/24 18:59 06:59 18:59 Intake Total 240 222 Balance 240 222 Intake: Oral 240 222 Other: Voiding Method Toilet Toilet # Voids 2 1 - Exam GENERAL: The patient is lying in bed and is not in acute distress. NEUROLOGICAL: Higher mental function: The patient is awake, alert, oriented to self, place and time. Patient is following commands. No aphasia and no neglect. Cranial nerves: The pupils are round, equal and reactive to light and accommodation. Visual galan are full to confrontation throughout. Extraocular movement is intact no nystagmus is noted. Facial sensation is normal to touch throughout. The facial strength is normal throughout. Tongue is midline and moved [id number] without any difficulty. No dysarthria is noted. Motor: Gait is normal. The strength is 5 over 5 throughout. Normal tone and bulk. Cerebellum: Normal finger to nose heel to young bilaterally. Sensation: Sensation is normal to touch throughout. - Labs CBC & Chem 7: 10/02/24 10:00 10/02/24 10:00 Labs: Abnormal Lab Results - Last 24 Hours (Table) 10/05/24 Range/Units 18:44 SS-B Ab Interp Positive A (Negative) Assessment and Plan Assessment: This is a 44-year-old woman who had numbness over the right lower extremity in March 2024 and midnight just past September 30, 2024 she noticed numbness over the right face then later in the morning she noticed she had blurry vision of the right eye. * Likely multiple sclerosis. Patient has multiple FLAIR lesions on the MRI with few enhancing lesion (reported as 2 but I see one) within the staley-white matter junction in the bilateral frontal lobes. Rule out Mimicker of MS. SSB abs is positive. J CARLOS is positive but antiDSDNA is negative, therefore she does not have Lupus. * Hypertension * Tobacco use * Obesity Plan: I spoke with reading radiologist Dr. Venegas as a second opinion and he reviewed MRI Brain and he feels from imaging seems suspicious for multiple sclerosis. MRI cervical spine thoracic spine: It is reported as large broad central disc herniation with moderate anterior thecal sac compression C5-C6 no AP spinal canal stenosis. No suspicion change suggest multiple sclerosis within the spinal cord. Personally reviewed MRI and regarding the patient disc herniation I felt was moderate and that this is not the cause for the patient's symptoms and it seems more likely multiple sclerosis Regarding lumbar puncture and consulted anesthesiologist and he stated he will attempt to perform the procedure today I started the patient on IV Solu-Medrol 500 mg every 12 hours for 3 to 5 days As stated earlier patient was started on aspirin and Lipitor by Dr. Nagel because of initial presentation there was concern for stroke but the patient does not have a stroke therefore I discontinued the medication Vitamin B12 is 364, serum folate is 13.0, hemoglobin A1c is 5.7 Lyme test is negative, RSV is negative, SARS-CoV-2 PCR is negative, influenza AB PCR is negative J CARLOS is positive and antiDsDNA is negative this patient does not have lupus. SS B is positive. SSA antibody is negative, SARS 18, Treponema pallidum antibody is nonreactive, HIV 1/2 antibody antigen/antibody is nonreactive. TSH is 1.830 And pending HTLV, Vitamin D level, hepatitis panel Will defer the rest of medical management to primary team. The plan is discussed with patient, her father who is at bedside, nurse and primary attending. Time with Patient: Less than 30
[2024-10-06 16:52] LABS: Glucose,Whole Blood 125 mg/dL (70-110)
[2024-10-06] MEDS: INSULIN ASPART (NovoLOG) 100 UNIT/ML VIAL SQ SCH (16:59)
[2024-10-06 20:12] LABS: Glucose,Whole Blood 160 mg/dL (70-110)
[2024-10-07 05:56] LABS: Glucose,Whole Blood 168 mg/dL (70-110)
[2024-10-07 11:31] LABS: Glucose,Whole Blood 198 mg/dL (70-110)
--- NOTE | 2024-10-07 14:00 | P.PN ---
Subjective Progress Note Date: 10/07/24 patient is a 44-year-old lady with past medical history significant for hypertension, tobacco addiction who presented to the ER for dizziness. Patient said that she was all right 1 day back when he started noticing that she was getting dizzy. Patient stated that it started suddenly and she felt like the whole room was spinning around her, dizziness was worsened by movement. Patient also having severe nausea and vomiting associated with it. Patient stated that she could not focus with her eyes and had a hard time walking. There was no weakness of any extremity. There is no complaint of slurred speech or facial droop. Patient was having neck pains prior to this and was using a neck massager for it. Because of this dizziness, patient came to the ER Initial lab work done in the ER showed WBC 12.5, hemoglobin 15.5, platelet count 284, sodium 140, potassium 4, BUN 11, creatinine 0.52, glucose 126, HbA1c level was 5.7, AST was 21, ALT 19, UA done showed large amount of urine in the blood urine WBC 7 Influenza A not detected Influenza B not detected RSV not detected COVID-19 not detected EKG done in the ER showed heart rate of 94 , no ST segment elevation or depression seen, no T-wave inversions seen. 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 Patient seen and examined. MRI brain done showed 2 enhancing lesions within the staley-white matter junction in the bilateral frontal lobes, no evidence for acute/subacute infarct. CT abdomen pelvis and chest done showed no acute abnormality with no evidence of any mass. 2D echo done showed normal LV function MRI thoracic and cervical spine ordered 10/05. Patient seen and examined. States she feels the same as yesterday. Scheduled for MRI thoracic and cervical spine for today. 10/06. Patient seen and examined. Neurology planning to do LP. Cervical and thoracic spine done showed no suspicious changes for MS. Patient started on high-dose Solu-Medrol 10/07/2024. Patient seen and examined. States she feels much better after being on Solu-Medrol. States she has no pain. LP scheduled for 10/09 REVIEW OF SYSTEMS: CONSTITUTIONAL: No fever, no malaise,. CARDIOVASCULAR: No chest pain, no palpitations, no syncope. PULMONARY: No shortness of breath, no cough, GASTROINTESTINAL: No diarrhea, no nausea, no vomiting, no abdominal pain. NEUROLOGICAL: No headaches, no weakness, PHYSICAL EXAMINATION: GENERAL: The patient is alert and oriented x3, not in any acute distress. Well developed, well nourished. HEENT: Pupils are round and equally reacting to light. EOMI. No scleral icterus. No conjunctival pallor. Normocephalic, atraumatic. No pharyngeal erythema. No thyromegaly. CARDIOVASCULAR: S1 and S2 present. No murmurs, rubs, or gallops. PULMONARY: Chest is clear to auscultation, no wheezing or crackles. ABDOMEN: Soft, nontender, nondistended, normoactive bowel sounds. No palpable organomegaly. MUSCULOSKELETAL: No joint swelling or deformity. EXTREMITIES: No cyanosis, clubbing, or pedal edema. NEUROLOGICAL: Gross neurological examination did not reveal any focal deficits. SKIN: No rashes. Assessment and plan Dizziness Abdominal MRI showing 2 enhancing lesions in the staley-white matter, could be MS Hypertension Tobacco addiction Monitor vital signs Monitor CBC Monitor CMP Continue telemetry monitoring CT abdomen pelvis and chest done showed no acute abnormality with no evidence of any mass. 2D echo done showed normal LV function Continue Lipitor Continue IV Solu-Medrol day 2 MRI thoracic and cervical spine showed no suspicious changes for MS Neurology following, LP scheduled for 10/09 Labs and medication were reviewed.. Continue same treatment. Continue with symptomatic treatment. Resume home medication. Monitor labs and vitals. DVT and GI prophylaxis. Further recommendations as per clinical course of the patient Dictation was produced using [employer] dictation software. please excuse any grammatical, word or spelling errors. Objective - Vital Signs Vital signs: Vital Signs Temp 98.2 F 10/07/24 11:09 Pulse 98 10/07/24 11:09 Resp 16 10/07/24 11:09 BP 147/82 10/07/24 11:09 Pulse Ox 96 10/07/24 11:09 FiO2 Intake & Output 10/06/24 10/07/24 10/07/24 18:59 06:59 18:59 Intake Total 340 128 Balance 340 128 Weight 98.4 kg Intake: IV 10 Invasive Line 2 10 Oral 340 118 Other: Voiding Method Toilet Toilet Toilet # Voids 3 1 - Labs CBC & Chem 7: 10/02/24 10:00 10/02/24 10:00 Labs: Abnormal Lab Results - Last 24 Hours (Table) 10/06/24 10/06/24 10/07/24 Range/Units 16:43 20:10 05:53 POC Glucose (mg/dL) 125 H 160 H 168 H (70-110) mg/dL 10/07/24 Range/Units 11:28 POC Glucose (mg/dL) 198 H (70-110) mg/dL
--- NOTE | 2024-10-07 14:44 | P.PN ---
Subjective Progress Note Date: 10/07/24 I am following-up with patient and she states she she has been on IV Solu-Medrol she has been feeling her sensation in right lower extremity is somewhat better. Denies any new neurological issues. She declined Lumbar Puncture by the Anesthesiologist and will consider for this Saturday. Objective - Vital Signs Vital signs: Vital Signs Temp 98.2 F 10/07/24 11:09 Pulse 98 10/07/24 11:09 Resp 16 10/07/24 11:09 BP 147/82 10/07/24 11:09 Pulse Ox 96 10/07/24 11:09 FiO2 Intake & Output 10/06/24 10/07/24 10/07/24 18:59 06:59 18:59 Intake Total 340 238 Balance 340 238 Weight 98.4 kg Intake: IV 20 Invasive Line 2 20 Intake, IV Titration 100 Amount methylPREDNISolone SOD 100 SUCCIN 500 mg In Sodium Chloride 0.9% 100 ml @ 100 mls/hr IVPB Q12HR [facility] Rx#:[id number] Oral 340 118 Other: Voiding Method Toilet Toilet Toilet # Voids 3 1 - Exam GENERAL: The patient is lying in bed and is not in acute distress. NEUROLOGICAL: Higher mental function: The patient is awake, alert, oriented to self, place and time. Patient is following commands. No aphasia and no neglect. Cranial nerves: The pupils are round, equal and reactive to light and accommodation. Visual galan are full to confrontation throughout. Extraocular movement is intact no nystagmus is noted. Facial sensation is normal to touch throughout. The facial strength is normal throughout. Tongue is midline and moved [id number] without any difficulty. No dysarthria is noted. Motor: Gait is normal. The strength is 5 over 5 throughout. Normal tone and bulk. Cerebellum: Normal finger to nose heel to young bilaterally. Sensation: Sensation is normal to touch throughout. - Labs CBC & Chem 7: 10/02/24 10:00 10/02/24 10:00 Labs: Abnormal Lab Results - Last 24 Hours (Table) 10/06/24 10/06/24 10/07/24 Range/Units 16:43 20:10 05:53 POC Glucose (mg/dL) 125 H 160 H 168 H (70-110) mg/dL 10/07/24 Range/Units 11:28 POC Glucose (mg/dL) 198 H (70-110) mg/dL Assessment and Plan Assessment: This is a 44-year-old woman who had numbness over the right lower extremity in March 2024 and midnight just past September 30, 2024 she noticed numbness over the right face then later in the morning she noticed she had blurry vision of the right eye. * Likely multiple sclerosis. Patient has multiple FLAIR lesions on the MRI with few enhancing lesion (reported as 2 but I see one) within the staley-white matter junction in the bilateral frontal lobes. Rule out Mimicker of MS. SSB abs is positive. J CARLOS is positive but antiDSDNA is negative, therefore she does not have Lupus. * Hypertension * Tobacco use * Obesity Plan: I spoke with reading radiologist Dr. Venegas (on 10/06/2024) as a second opinion and he reviewed MRI Brain and he feels from imaging seems suspicious for multiple sclerosis. MRI cervical spine thoracic spine: It is reported as large broad central disc herniation with moderate anterior thecal sac compression C5-C6 no AP spinal canal stenosis. No suspicion change suggest multiple sclerosis within the spinal cord. Personally reviewed MRI and regarding the patient disc herniation I felt was moderate and that this is not the cause for the patient's symptoms and it seems more likely multiple sclerosis Will pursue with Lumbar Puncture this Saturday by Dr. Castellon. She refused by Anesthesiologist yesterday. I started the patient on IV Solu-Medrol 500 mg every 12 hours for 3 to 5 days (start day was on 10/06/2024). Today is day #2. As stated earlier patient was started on aspirin and Lipitor by Dr. Nagel because of initial presentation there was concern for stroke but the patient does not have a stroke therefore I discontinued the medication Vitamin B12 is 364, serum folate is 13.0, hemoglobin A1c is 5.7 Lyme test is negative, RSV is negative, SARS-CoV-2 PCR is negative, influenza AB PCR is negative J CARLOS is positive and antiDsDNA is negative this patient does not have lupus. SS B is positive. SSA antibody is negative, SARS 18, Treponema pallidum antibody is nonreactive, HIV 1/2 antibody antigen/antibody is nonreactive. TSH is 1.830 And pending HTLV, Vitamin D level, hepatitis panel Will defer the rest of medical management to primary team. The plan is discussed with patient, her father who is at bedside and nurse. Time with Patient: Less than 30
[2024-10-07 16:18] LABS: Glucose,Whole Blood 152 mg/dL (70-110)
[2024-10-07 17:18] LABS: Hepatitis A Antibody IgM Nonreactive (Nonreactive); Hepatitis B Core IgM Nonreactive (Nonreactive); Hepatitis B Surface Antigen Nonreactive (Nonreactive); Hepatitis C IgG Antibody Nonreactive (Nonreactive)
[2024-10-07 19:55] LABS: Glucose,Whole Blood 171 mg/dL (70-110)
[2024-10-08 05:44] LABS: Glucose,Whole Blood 192 mg/dL (70-110)
[2024-10-08 11:24] LABS: Glucose,Whole Blood 135 mg/dL (70-110)
[2024-10-08] MEDS: ACETAMINOPHEN TAB 325 MG TAB PO PRN (12:17)
--- NOTE | 2024-10-08 12:54 | P.PN ---
Subjective Progress Note Date: 10/08/24 patient is a 44-year-old lady with past medical history significant for hypertension, tobacco addiction who presented to the ER for dizziness. Patient said that she was all right 1 day back when he started noticing that she was getting dizzy. Patient stated that it started suddenly and she felt like the whole room was spinning around her, dizziness was worsened by movement. Patient also having severe nausea and vomiting associated with it. Patient stated that she could not focus with her eyes and had a hard time walking. There was no weakness of any extremity. There is no complaint of slurred speech or facial droop. Patient was having neck pains prior to this and was using a neck massager for it. Because of this dizziness, patient came to the ER Initial lab work done in the ER showed WBC 12.5, hemoglobin 15.5, platelet count 284, sodium 140, potassium 4, BUN 11, creatinine 0.52, glucose 126, HbA1c level was 5.7, AST was 21, ALT 19, UA done showed large amount of urine in the blood urine WBC 7 Influenza A not detected Influenza B not detected RSV not detected COVID-19 not detected EKG done in the ER showed heart rate of 94 , no ST segment elevation or depression seen, no T-wave inversions seen. 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 Patient seen and examined. MRI brain done showed 2 enhancing lesions within the staley-white matter junction in the bilateral frontal lobes, no evidence for acute/subacute infarct. CT abdomen pelvis and chest done showed no acute abnormality with no evidence of any mass. 2D echo done showed normal LV function MRI thoracic and cervical spine ordered 10/05. Patient seen and examined. States she feels the same as yesterday. Scheduled for MRI thoracic and cervical spine for today. 10/06. Patient seen and examined. Neurology planning to do LP. Cervical and thoracic spine done showed no suspicious changes for MS. Patient started on high-dose Solu-Medrol 10/07/2024. Patient seen and examined. States she feels much better after being on Solu-Medrol. States she has no pain. LP scheduled for 10/0910/08/2024. Patient seen and examined. States she is doing much better, blood sugars elevated secondary to steroids, currently on sliding scale insulin REVIEW OF SYSTEMS: CONSTITUTIONAL: No fever, no malaise,. CARDIOVASCULAR: No chest pain, no palpitations, no syncope. PULMONARY: No shortness of breath, no cough, GASTROINTESTINAL: No diarrhea, no nausea, no vomiting, no abdominal pain. NEUROLOGICAL: No headaches, no weakness, PHYSICAL EXAMINATION: GENERAL: The patient is alert and oriented x3, not in any acute distress. Well developed, well nourished. HEENT: Pupils are round and equally reacting to light. EOMI. No scleral icterus. No conjunctival pallor. Normocephalic, atraumatic. No pharyngeal erythema. No thyromegaly. CARDIOVASCULAR: S1 and S2 present. No murmurs, rubs, or gallops. PULMONARY: Chest is clear to auscultation, no wheezing or crackles. ABDOMEN: Soft, nontender, nondistended, normoactive bowel sounds. No palpable organomegaly. MUSCULOSKELETAL: No joint swelling or deformity. EXTREMITIES: No cyanosis, clubbing, or pedal edema. NEUROLOGICAL: Gross neurological examination did not reveal any focal deficits. SKIN: No rashes. Assessment and plan Dizziness Abdominal MRI showing 2 enhancing lesions in the staley-white matter, could be MS Hypertension Tobacco addiction Monitor vital signs Monitor CBC Monitor CMP Continue telemetry monitoring CT abdomen pelvis and chest done showed no acute abnormality with no evidence of any mass. 2D echo done showed normal LV function Continue Lipitor Continue IV Solu-Medrol day 3 Monitor blood sugar, on sliding scale insulin MRI thoracic and cervical spine showed no suspicious changes for MS Neurology following, LP scheduled for 10/09 Labs and medication were reviewed.. Continue same treatment. Continue with symptomatic treatment. Resume home medication. Monitor labs and vitals. DVT and GI prophylaxis. Further recommendations as per clinical course of the patient Dictation was produced using [employer] dictation software. please excuse any grammatical, word or spelling errors. Objective - Vital Signs Vital signs: Vital Signs Temp 97.6 F 10/08/24 04:00 Pulse 85 10/08/24 12:08 Resp 18 10/08/24 12:08 BP 141/85 10/08/24 12:08 Pulse Ox 94 L 10/08/24 12:08 FiO2 Intake & Output 10/07/24 10/08/24 10/08/24 18:59 06:59 18:59 Intake Total 578 420 Balance 578 420 Weight 89.5 kg Intake: IV 20 Invasive Line 2 20 Intake, IV Titration 100 Amount methylPREDNISolone SOD 100 SUCCIN 500 mg In Sodium Chloride 0.9% 100 ml @ 100 mls/hr IVPB Q12HR [facility] Rx#:[id number] Oral 458 420 Other: Voiding Method Toilet Toilet Toilet # Voids 1 - Labs CBC & Chem 7: 10/02/24 10:00 10/02/24 10:00 Labs: Abnormal Lab Results - Last 24 Hours (Table) 10/07/24 10/07/24 10/08/24 Range/Units 16:17 19:53 05:42 POC Glucose (mg/dL) 152 H 171 H 192 H (70-110) mg/dL 10/08/24 Range/Units 11:21 POC Glucose (mg/dL) 135 H (70-110) mg/dL
--- NOTE | 2024-10-08 15:14 | P.PN ---
Subjective Progress Note Date: 10/08/24 I am following-up with patient and states she continues to noticed improvement in patient's sensory issue on the right side. Denies any new neurological issues. Objective - Vital Signs Vital signs: Vital Signs Temp 97.6 F 10/08/24 04:00 Pulse 85 10/08/24 12:08 Resp 18 10/08/24 12:08 BP 141/85 10/08/24 12:08 Pulse Ox 94 L 10/08/24 12:08 FiO2 Intake & Output 10/07/24 10/08/24 10/08/24 18:59 06:59 18:59 Intake Total 578 660 Balance 578 660 Weight 89.5 kg Intake: IV 20 Invasive Line 2 20 Intake, IV Titration 100 Amount methylPREDNISolone SOD 100 SUCCIN 500 mg In Sodium Chloride 0.9% 100 ml @ 100 mls/hr IVPB Q12HR [facility] Rx#:[id number] Oral 458 660 Other: Voiding Method Toilet Toilet Toilet # Voids 1 1 - Exam GENERAL: The patient is lying in bed and is not in acute distress. NEUROLOGICAL: Higher mental function: The patient is awake, alert, oriented to self, place and time. Patient is following commands. No aphasia and no neglect. Cranial nerves: The pupils are round, equal and reactive to light and accommodation. Visual galan are full to confrontation throughout. Extraocular movement is intact no nystagmus is noted. Facial sensation is normal to touch throughout. The facial strength is normal throughout. Tongue is midline and moved [id number] without any difficulty. No dysarthria is noted. Motor: Gait is normal. The strength is 5 over 5 throughout. Normal tone and bulk. Cerebellum: Normal finger to nose heel to young bilaterally. Sensation: Sensation is normal to touch throughout. - Labs CBC & Chem 7: 10/02/24 10:00 10/02/24 10:00 Labs: Abnormal Lab Results - Last 24 Hours (Table) 10/07/24 10/07/24 10/07/24 Range/Units 06:47 16:17 19:53 POC Glucose (mg/dL) 152 H 171 H (70-110) mg/dL Vitamin D 25-Hydroxy 23.8 L (30.0-100.0) ng/mL 10/08/24 10/08/24 Range/Units 05:42 11:21 POC Glucose (mg/dL) 192 H 135 H (70-110) mg/dL Vitamin D 25-Hydroxy (30.0-100.0) ng/mL Assessment and Plan Assessment: This is a 44-year-old woman who had numbness over the right lower extremity in March 2024 and midnight just past September 30, 2024 she noticed numbness over the right face then later in the morning she noticed she had blurry vision of the right eye. * Likely multiple sclerosis. Patient has multiple FLAIR lesions on the MRI with few enhancing lesion (reported as 2 but I see one) within the staley-white matter junction in the bilateral frontal lobes. Rule out Mimicker of MS. SSB abs is positive. J CARLOS is positive but antiDSDNA is negative, therefore she does not have Lupus. * Vitamin D deficiency (23.80) * Hypertension * Tobacco use * Obesity Plan: I spoke with reading radiologist Dr. Venegas (on 10/06/2024) as a second opinion and he reviewed MRI Brain and he feels from imaging seems suspicious for multiple sclerosis. MRI cervical spine thoracic spine: It is reported as large broad central disc herniation with moderate anterior thecal sac compression C5-C6 no AP spinal canal stenosis. No suspicion change suggest multiple sclerosis within the spinal cord. Personally reviewed MRI and regarding the patient disc herniation I felt was moderate and that this is not the cause for the patient's symptoms and it seems more likely multiple sclerosis Will pursue with Lumbar Puncture this Saturday by Dr. Castellon. She refused by Anesthesiologist 10/06/24. I will consult pain specialist to assess if they are available today. I started the patient on IV Solu-Medrol 500 mg every 12 hours for 3 to 5 days (start day was on 10/06/2024). Today is day #3. As stated earlier patient was started on aspirin and Lipitor by Dr. Nagel because of initial presentation there was concern for stroke but the patient does not have a stroke therefore I discontinued the medication Vitamin B12 is 364, serum folate is 13.0, hemoglobin A1c is 5.7 Lyme test is negative, RSV is negative, SARS-CoV-2 PCR is negative, influenza AB PCR is negative J CARLOS is positive and antiDsDNA is negative this patient does not have lupus. SS B is positive. SSA antibody is negative, SARS 18, Treponema pallidum antibody is nonreactive, HIV 1/2 antibody antigen/antibody is nonreactive. TSH is 1.830 and Hepatitis panel acute process is nonreactive. Vitamin D deficiency (23.80): I gave one time vitamin D3 5000IU once then after that 2000IU daily And pending HTLV Will defer the rest of medical management to primary team. Upon discharge, recommend the patient ot follow-up with neurologist/MS specialist as outpatient within 2-3 weeks. I would recommend patient to be started as outpatient on Disease Modifying Therapy for her MS and will defer it to her outpatient neurologist. If after the Lumbar Puncture, if no new neurological issues then patient is clear from neurological perspective. The plan is discussed with patient, her father who is at bedside. Time with Patient: Less than 30
[2024-10-08] MEDS: CHOLECALCIFEROL 125 MCG (5000 IU) TABLET PO STA (16:23)
[2024-10-08] MEDS: CALCIUM CARB-VIT D 500 MG-5 MCG TAB PO SCH (16:23)
[2024-10-08 16:24] LABS: Glucose,Whole Blood 236 mg/dL (70-110)
[2024-10-08 20:13] LABS: Glucose,Whole Blood 96 mg/dL (70-110)
[2024-10-09 06:14] LABS: Glucose,Whole Blood 139 mg/dL (70-110)
[2024-10-09 07:06] LABS: Basophils % (A) 0 %; Eosinophils # (A) 0.1 k/uL (0-0.7); Eosinophils % (A) 0 %; HCT 39.9 % (34.0-46.0); HGB 13.1 gm/dL (11.4-16.0); Lymphocytes % (A) 5 %; MCH 29.4 pg (25.0-35.0); MCV 89.3 fL (80.0-100.0); Monocytes # (A) 0.6 k/uL (0-1.0); Monocytes % (A) 3 %; Neutrophils # (A) 18.5 k/uL (1.3-7.7); Neutrophils % (A) 92 %; Platelet Count 252 k/uL (150-450); RBC 4.47 m/uL (3.80-5.40); RDW 13.4 % (11.5-15.5); WBC 20.1 k/uL (3.8-10.6)
[2024-10-09 07:11] LABS: ALT 15 U/L (4-34); AST 13 U/L (14-36); African American GFR (CKD) >90 (>60 ml/min/1.73 sqM); Albumin 3.5 g/dL (3.5-5.0); Alkaline Phosphatase 72 U/L (38-126); Anion Gap 7 mmol/L; Blood Urea Nitrogen 16 mg/dL (7-17); Calcium 9.2 mg/dL (8.4-10.2); Carbon Dioxide 26 mmol/L (22-30); Chloride 108 mmol/L (98-107); Glucose 139 mg/dL (74-99); Non-African American GFR(CKD) >90 (>60 ml/min/1.73 sqM); Potassium 4.3 mmol/L (3.5-5.1); Sodium 141 mmol/L (137-145); Total Bilirubin <0.1 mg/dL (0.2-1.3); Total Protein 5.7 g/dL (6.3-8.2)
[2024-10-09] MEDS: CHOLECALCIFEROL 25 MCG (1000 IU) TABLET PO SCH (08:47)
[2024-10-09 09:22] VITALS: BMI 44.9
[2024-10-09] MEDS: IV FLUID CONTINUATION 1,000 ML IV ONE (10:46)
[2024-10-09] MEDS ORDERED: fentaNYL (PF) 50 MCG/ML 2 ML AMP ONE (11:21)
--- NOTE | 2024-10-09 11:33 | P.PCN ---
Date of Procedure: 10/09/24 Procedure(s) Performed: Preoperative diagnosis: Multiple sclerosis Post operative diagnoses: Multiple sclerosis Procedure= lumbar puncture Anesthesia= moderate sedation with fentanyl 100 g, local infiltration with lidocaine 1% 2 mL. Sedation start time :11:21 Sedation end time : 11:28 Condition: stable Complication: none. Description of the procedure procedure risk and benefits discussed with the patient , consent signed. Patient and the procedure area placed in sitting position, back prepped with chlorhexidine 3 times been local infiltration of the skin and subcutaneous tissue with lidocaine 1% 2 mL for skin and subcu interstitial frustrations at L4 5 levels then 22-gauge Quincke-type needle advanced slowly at L4- 5 interlaminar space there was positive cerebrospinal fluid which was clear, no heme, no paresthesia ,total of 9 ML of clear cerebrospinal fluid collected in 4 different tubes 2-2-1/2 mL in each, then the needle removed and a Band-Aid applied and patient tolerated the procedure well without any complications.
[2024-10-09 11:48] VITALS: BP 135/81; PULSE 76; RESP 14; TEMP 99
[2024-10-09 11:48] LABS: Glucose,Whole Blood 134 mg/dL (70-110)
--- NOTE | 2024-10-09 13:32 | P.DS ---
Providers Date of admission: 10/02/24 12:51 Expected date of discharge: 10/09/24 Attending physician: Glynn Oliver MD Consults: 10/02/24 12:23 Consult Physician Urgent Consulting Provider: Francy Nagel Consult Reason/Comments: frontal lobe infarct Do you want consulting provider notified?: Yes 10/06/24 12:51 Consult to Anesthesia Routine Consulting Provider: Anesthesia,Services Consult Reason/Comments: lumbar puncture for consult Multiple Sclerosis Primary care physician: Henrique Hardy Hospital Course: Discharge diagnoses; Dizziness Abdominal MRI showing 2 enhancing lesions in the staley-white matter, most likely MS Hypertension Tobacco addiction Hospital course; patient is a 44-year-old lady with past medical history significant for hypertension, tobacco addiction who presented to the ER for dizziness. Patient said that she was all right 1 day back when he started noticing that she was getting dizzy. Patient stated that it started suddenly and she felt like the whole room was spinning around her, dizziness was worsened by movement. Patient also having severe nausea and vomiting associated with it. Patient stated that she could not focus with her eyes and had a hard time walking. There was no weakness of any extremity. There is no complaint of slurred speech or facial droop. Patient was having neck pains prior to this and was using a neck massager for it. Because of this dizziness, patient came to the ER Initial lab work done in the ER showed WBC 12.5, hemoglobin 15.5, platelet count 284, sodium 140, potassium 4, BUN 11, creatinine 0.52, glucose 126, HbA1c level was 5.7, AST was 21, ALT 19, UA done showed large amount of urine in the blood urine WBC 7 Influenza A not detected Influenza B not detected RSV not detected COVID-19 not detected EKG done in the ER showed heart rate of 94 , no ST segment elevation or depression seen, no T-wave inversions seen. 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 Patient seen and examined. MRI brain done showed 2 enhancing lesions within the staley-white matter junction in the bilateral frontal lobes, no evidence for acute/subacute infarct. CT abdomen pelvis and chest done showed no acute abnormality with no evidence of any mass. 2D echo done showed normal LV function MRI thoracic and cervical spine ordered 10/05. Patient seen and examined. States she feels the same as yesterday. Scheduled for MRI thoracic and cervical spine for today. 10/06. Patient seen and examined. Neurology planning to do LP. Cervical and thoracic spine done showed no suspicious changes for MS. Patient started on high-dose Solu-Medrol 10/07/2024. Patient seen and examined. States she feels much better after being on Solu-Medrol. States she has no pain. LP scheduled for 10/0910/08/2024. Patient seen and examined. States she is doing much better, blood sugars elevated secondary to steroids, currently on sliding scale insulin 10/09. Patient seen and examined. Patient underwent LP this morning. Patient treated with 4 days of IV Solu-Medrol. Neurology recommend outpatient follow-up with neurology with follow-up on lab results and with possible starting disease modifying therapy for MS PHYSICAL EXAMINATION: GENERAL: The patient is alert and oriented x3, not in any acute distress. Well developed, well nourished. HEENT: Pupils are round and equally reacting to light. EOMI. No scleral icterus. No conjunctival pallor. Normocephalic, atraumatic. No pharyngeal erythema. No thyromegaly. CARDIOVASCULAR: S1 and S2 present. No murmurs, rubs, or gallops. PULMONARY: Chest is clear to auscultation, no wheezing or crackles. ABDOMEN: Soft, nontender, nondistended, normoactive bowel sounds. No palpable organomegaly. MUSCULOSKELETAL: No joint swelling or deformity. EXTREMITIES: No cyanosis, clubbing, or pedal edema. NEUROLOGICAL: Gross neurological examination did not reveal any focal deficits. SKIN: No rashes. Dictation was produced using [employer] dictation software. please excuse any grammatical, word or spelling errors. Patient Condition at Discharge: Fair Plan - Discharge Summary New Discharge Prescriptions: Continue amLODIPine [Norvasc] 10 mg PO HS Ferrous Sulfate [Iron (65 MG Elemental)] 325 mg PO W/SUPPER Ergocalciferol [Vitamin D2 (1250 Mcg = 50679 Iu)] 1,250 mcg PO MO Discharge Medication List Ergocalciferol [Vitamin D2 (1250 Mcg = 59391 Iu)] 1,250 mcg PO MO 10/02/24 [History] Ferrous Sulfate [Iron (65 MG Elemental)] 325 mg PO W/SUPPER 10/02/24 [History] amLODIPine [Norvasc] 10 mg PO HS 10/02/24 [History] Follow up Appointment(s)/Referral(s): Henrique Hardy MD [Primary Care Provider] - 1-2 days Patient Instructions/Handouts: Multiple Sclerosis (DC) Discharge/Stand Alone Forms: Anes Pain/[facility]mer Instructions Discharge Disposition: HOME SELF-CARE
--- NOTE | 2024-10-09 13:47 | P.PN ---
Subjective Progress Note Date: 10/09/24 I am following-up with patient and she had the lumbar puncture today and tolerated well and denies any headache. States Steroids is helping and denies of any new neurological issues. Objective - Vital Signs Vital signs: Vital Signs Temp 99 F 10/09/24 11:46 Pulse 76 10/09/24 11:46 Resp 14 10/09/24 11:46 BP 135/81 10/09/24 11:46 Pulse Ox 96 10/09/24 11:46 FiO2 Intake & Output 10/08/24 10/09/24 10/09/24 18:59 06:59 18:59 Intake Total 660 1180 50 Balance 660 1180 50 Weight 101 kg 101 kg Intake: IV 50 Intake, IV Titration 100 Amount methylPREDNISolone SOD 100 SUCCIN 500 mg In Sodium Chloride 0.9% 100 ml @ 100 mls/hr IVPB Q12HR JOEL Rx#:[id number] Oral 660 1080 0 Other: Voiding Method Toilet Toilet Toilet # Voids 1 1 - Exam GENERAL: The patient is lying in bed and is not in acute distress. NEUROLOGICAL: Higher mental function: The patient is awake, alert, oriented to self, place and time. Patient is following commands. No aphasia and no neglect. Cranial nerves: The pupils are round, equal and reactive to light and accommodation. Visual galan are full to confrontation throughout. Extraocular movement is intact no nystagmus is noted. Facial sensation is normal to touch throughout. The facial strength is normal throughout. Tongue is midline and moved [id number] without any difficulty. No dysarthria is noted. Motor: The strength is 5 over 5 throughout. Normal tone and bulk. Cerebellum: Normal finger to nose heel to young bilaterally. Sensation: Sensation is normal to touch throughout. - Labs CBC & Chem 7: 10/09/24 06:36 10/09/24 06:36 Labs: Abnormal Lab Results - Last 24 Hours (Table) 10/08/24 10/09/24 10/09/24 Range/Units 16:22 06:13 06:36 WBC 20.1 H (3.8-10.6) k/uL Neutrophils # 18.5 H (1.3-7.7) k/uL Chloride (98-107) mmol/L Glucose (74-99) mg/dL POC Glucose (mg/dL) 236 H 139 H (70-110) mg/dL Total Bilirubin (0.2-1.3) mg/dL AST (14-36) U/L Total Protein (6.3-8.2) g/dL 10/09/24 10/09/24 Range/Units 06:36 11:46 WBC (3.8-10.6) k/uL Neutrophils # (1.3-7.7) k/uL Chloride 108 H (98-107) mmol/L Glucose 139 H (74-99) mg/dL POC Glucose (mg/dL) 134 H (70-110) mg/dL Total Bilirubin <0.1 L (0.2-1.3) mg/dL AST 13 L (14-36) U/L Total Protein 5.7 L (6.3-8.2) g/dL Assessment and Plan Assessment: This is a 44-year-old woman who had numbness over the right lower extremity in March 2024 and midnight just past September 30, 2024 she noticed numbness over the right face then later in the morning she noticed she had blurry vision of the right eye. * Likely multiple sclerosis. Patient has multiple FLAIR lesions on the MRI with few enhancing lesion (reported as 2 but I see one) within the staley-white matter junction in the bilateral frontal lobes. Rule out Mimicker of MS. SSB abs is positive. J CARLOS is positive but antiDSDNA is negative, therefore she does not have Lupus. * Vitamin D deficiency (23.80) * Hypertension * Tobacco use * Obesity Plan: I spoke with reading radiologist Dr. Venegas (on 10/06/2024) as a second opinion and he reviewed MRI Brain and he feels from imaging seems suspicious for multiple sclerosis. MRI cervical spine thoracic spine: It is reported as large broad central disc herniation with moderate anterior thecal sac compression C5-C6 no AP spinal canal stenosis. No suspicion change suggest multiple sclerosis within the spinal cord. Personally reviewed MRI and regarding the patient disc herniation I felt was moderate and that this is not the cause for the patient's symptoms and it seems more likely multiple sclerosis Patient had lumbar puncture today and tolerated the procedure well so far. I started the patient on IV Solu-Medrol 500 mg every 12 hours for 3 to 5 days (start day was on 10/06/2024). Today is day #4. As stated earlier patient was started on aspirin and Lipitor by Dr. Nagel because of initial presentation there was concern for stroke but the patient does not have a stroke therefore I discontinued the medication Vitamin B12 is 364, serum folate is 13.0, hemoglobin A1c is 5.7 Lyme test is negative, RSV is negative, SARS-CoV-2 PCR is negative, influenza AB PCR is negative J CARLOS is positive and antiDsDNA is negative this patient does not have lupus. SS B is positive. SSA antibody is negative, SARS 18, Treponema pallidum antibody is nonreactive, HIV 1/2 antibody antigen/antibody is nonreactive. TSH is 1.830 and Hepatitis panel acute process is nonreactive. HTLV is negative. Vitamin D deficiency (23.80): I gave one time vitamin D3 5000IU once then after that 2000IU daily Will defer the rest of medical management to primary team. Upon discharge, recommend the patient ot follow-up with neurologist/MS specialist as outpatient within 2-3 weeks. I would recommend patient to be started as outpatient on Disease Modifying Therapy for her MS and will defer it to her outpatient neurologist. Will monitor the patient for a couple more hours after lumbar puncture and if no new symptoms then patient is clear from neurological perspective. The plan is discussed with patient, her father who is at bedside. Time with Patient: Less than 30
[2024-10-09 16:31] LABS: Appearance,CSF Clear; CSF Tube Number 4
[2024-10-09 16:40] LABS: Glucose,CSF 93 mg/dL (40-70); Total Protein,CSF 39 mg/dL (12-60)
[2024-10-09 17:04] LABS: Nucleated Cells, CSF 1 u/L (0-5); Red Blood Cell,CSF 4 u/L (0-10)
[2024-10-09 19:10] LABS: ANA Pattern Speckled
[2024-10-13 11:59] LABS: IgG - CSF 1.2 mg/dL (0.0 - 3.4); IgG/Albumin Index (CSF) 0.57 (0.00 - 0.77); Immunoglobulin G 687 mg/dL (700 - 1600)
== END 2024-10-09 15:09 | disposition home or self-care (01) | DRG 59 ==
LOC: EC 09:28 → 3SCARD 12:51
PROVIDERS: ADMIT Internal Medicine; ATTEND Internal Medicine
PROC: 009U3ZX Drainage of Spinal Canal, Percutaneous Approach, Diagnostic (ICD-10-PCS; principal; 2024-10-09 11:00)
DX: G35 Multiple sclerosis (principal); Z68.42 Body mass index [BMI] 45.0-49.9, adult; E66.9 Obesity, unspecified; I10 Essential (primary) hypertension; M50.223 Other cervical disc displacement at C6-C7 level; R73.02 Impaired glucose tolerance (oral); T38.0X5A Adverse effect of glucocorticoids and synthetic analogues, initial encounter; E55.9 Vitamin D deficiency, unspecified; F17.210 Nicotine dependence, cigarettes, uncomplicated; Z71.6 Tobacco abuse counseling; Z71.3 Dietary counseling and surveillance; Z79.899 Other long term (current) drug therapy
CPT/HCPCS: 36415; 62270; 70450; 70496; 70498; 70553; 71046; 71260; 72156; 72157; 74177; 80053; 80061; 80074; 80076; 81001; 81025; 82040; 82042; 82306; 82607; 82652; 82746; 82784; 82945; 83036; 83873; 83916; 84157; 84443; 84484; 85025; 85652; 86038; 86039; 86225; 86235; 86618; 86780; 86790; 87390; 87636; 89050; 93005; 93306; 96361; 96374; 96376; 99285

== ENCOUNTER → 2024-12-07 | Outpatient (CLI) | payer OTHER ==
[2024-12-07 08:09] VITALS: BP 130/86; PULSE 111; RESP 16; TEMP 97.9
--- NOTE | 2024-12-07 15:27 | P.PAINPG ---
PQRS Measure Charge Sheet Comment: HISTORY OF PRESENT ILLNESS: A 44 yr old female as a referral from [facility] presents today w severe and chronic neck pain since Summer 2023 secondary to radiculopathy, spondylosis and facet arthropathy without myelopathy for evaluation. Pt states pain level is provoked at 8 /10 in intensity, constant, localized in the lower cervical spine, predominantly axial, tingly in character w occasional shooting pain towards the LUE. Pain is provoked by lifting. Pain is alleviated by chiropractic treatment s weekly x 6 wks which ended in Jun 2024, yoga twice weekly since Fall 2023, heat, medications, manual massage, repositioning and rest . Cervical disability score at 23. PMH: OA, HTN, Nephrolithiasis PSH: , Hernia Repair, Orthopedic Surgery SH: Daily tobacco use, Rare ETOH use, No illicit drug use FH: Non contributory All: See list Meds: See list incl Ibu REVIEW OF ORGAN SYSTEMS: CONSTITUTIONAL: No fevers or chills. No recent weight loss. NEUROLOGICAL: + numbness and tingling along the distal extremities. No seizure disorders or headaches. MUSCULOSKELETAL: + pain PSYCHIATRIC: Denies current depression or suicidal thoughts. Physical Examinations : Constitutional : Cooperative , not in acute distress . Neurologic : Cranial nerve II to XII intact. No focal neurological deficits. Psychiatric : alert & oriented x 3. Matching mood & appropriate affect. Judgment & insight intact. Musculoskeletal : Cervical Spine Motor strength in the deltoid and biceps: Normal right side. Normal Left side Motor strength biceps and the wrist extensors: Normal right side . Normal left side Motor strength in the triceps muscle: Normal right side. Normal left side Deep tendon reflexes: Normal at the biceps. Normal at Brachioradialis. Normal at triceps Vertebral body tenderness to deep palpation over C6 Khan test positive L C6-C7 Cervical facet loading test: positive bilaterally Spurling test: positive bilaterally Neck distraction test: positive bilaterally Kati sign: positive bilaterally Lumbar spine Motor strength lower extremities ,thigh and legs 5/5 Right side , 5/5 Left side Deep tendon reflexes : Normal Knee Jerk. Normal Ankle Jerk Vertebral body tenderness over Khan Test positive Lumbar facet Loading Test: positive Right / positive Left Range of motion of the lumbar spine Flexion 30 degrees, extension 10 degrees Straight Leg Raise test: Left/ Right positive at degrees Earl test: positive right / positive left. Severe tenderness over the Sacroiliac joint on the Right / Left sides Gaenslen test: positive bilaterally Seated flexion test: positive bilater ally. Sacral spine : Severe tenderness over the Sacroiliac joint: right side / left side Range of motion: Flexion of the lumbar spine <60 degrees Range of motion: Extension of the lumbar spine <20 degrees Gaenslen's Test positive Earl test: positive right side / left side Thigh Thrust Test Sacral Thrust Test Imaging: MRI with/ without contrast cervical and thoracic spine from 10/05/24 reviewed Assessment/ Plan : C4-C6 anterolisthesis Recommendation of RANDY C6-C7 #1. Risks, benefits of procedure discussed and patient verbalized understanding. Admits to anti- coagulant use or medical history of diabetes. Protocol for discontinuation/ continuation of medications jelani procedure discussed. All questions answered. I have spent greater than 30 minutes on patient care today. Dr Castellon was available by phone for the evaluation of this patient. The time was used to rev iew the medical records including relevant urine studies and Prescription history (MAPs), review of the available imaging, evaluation and examination of the patient, coordination of care with the medical staff and if applicable referring physicians, as well as creation of the medical record - Pain Location Neck Pharmacological Interventions: Medication PQRS Narrative: Smoking Status Current every day smoker Home Medications: Ambulatory Orders Ergocalciferol [Vitamin D2 (1250 Mcg = 05873 Iu)] 1,250 mcg PO MO 10/02/24 Ferrous Sulfate [Iron (65 MG Elemental)] 325 mg PO W/SUPPER 10/02/24 amLODIPine [Norvasc] 10 mg PO HS 10/02/24 Nicotine 7Mg/24Hr Patch [Habitrol] 1 patch TRANSDERM DAILY 21 Days #21 patch 10/09/24 Controlled Substance Measures - Controlled Substance Measures Is patient prescribed a controlled substance at discharge?: Yes When asked, does pt state using other controlled substances?: No If prescribed controlled substance>3 days was MAPS reviewed?: Prescribed <3 Days
== END ==
LOC: PNWHC3 07:43
PROVIDERS: ATTEND Specialist
DX: M43.12 Spondylolisthesis, cervical region (principal); F17.210 Nicotine dependence, cigarettes, uncomplicated
CPT/HCPCS: 99212

== ENCOUNTER → 2025-01-19 | Day surgery (SDC) | payer OTHER ==
[2025-01-18 09:49] VITALS: BMI 46.4
[~2025-01-19] MED LIST: LACTATED RINGERS 1,000 ML IV SCH
[2025-01-19 07:28] VITALS: BP 138/60; PULSE 105; RESP 17; TEMP 97
--- NOTE | 2025-01-19 08:59 | P.PN ---
Progress Note - Text Patient has come for epidural injection today. Dr. Fernández neurologist note of 10/09/2024 states that second opinion by radiologist on MRI done on September 2024 suggests multiple sclerosis. And Dr. Fernández thinks patient's symptoms are secondary to MS. Patient is going to see [facility] multiple sclerosis specialist in about a week. If it is decided that patient do not have MS, she can have the epidural steroid injection. If her symptoms are secondary to MS, it is a relative contraindication for epidural steroid injection. Discussed in details with the patient. She understands and all questions were answered. Patient will call the pain clinic if MS is ruled out.
== END ==
LOC: ORPAIN 07:00
PROVIDERS: ATTEND Pain Medicine Interventional Pain Medicine
DX: M54.12 Radiculopathy, cervical region (principal); Z53.9 Procedure and treatment not carried out, unspecified reason